=== PATIENT | female | born 1955 | race Caucasian/White ===

== ENCOUNTER 2016-02-26 13:07 | Inpatient (IN) | payer BC ==
[~2016-02-26] VITALS: Ht 157.5 cm; Wt 109.5 kg
[2016-02-26] MEDS ORDERED: IBUP-103 PO (13:40)
--- NOTE | 2016-02-26 13:42 | EMERGENCY ROOM VISIT NOTE ---
History Report prepared by Kenia: Eric Caceres Under the Supervision of: Dr. Ce Gomez M.D. First contact with patient: 13:16 Chief Complaint: URINARY SYMPTOMS Stated Complaint: DARK URINE History of Present Illness The patient is a 60 year old female who presents to the Emergency Room with complaints of persistent dark urine that started a week ago. The patient started noticing that in the evening her urine seemed darker than normal. Her urine became persistently dark all week. She has been trying to drink a lot of water, but it is not helping. The patient went to [facility] an hour ago and was referred here to get imaging done. She was told that she has a lot of bile and her eyes and skin are looking yellow. The patient denies any pain or vomiting. She has no history of these symptoms. Source of History: patient Onset: A week ago Position: other (global - dark urine) Timing: other (persistent) Associated Symptoms: No vomiting Note: Associated symptoms: Told by Urgent Care PA that patient's eyes and skin are looking yellow. Patient denies any pain. Review of Systems See HPI for pertinent positives & negatives. A total of 10 systems reviewed and were otherwise negative. Past Medical & Surgical Medical Problems: (1) Tibia fracture Surgical Problems: (1) History of hip surgery Family History FH: cancer FH: heart disease Social History Smoking Status: Never Smoker Smokeless Tobacco Use: No Alcohol Use: none Housing Status: lives alone Occupation Status: unemployed Current/Historical Medications Scheduled Ibuprofen Tab (Advil), 400 MG PO HS Allergies Coded Allergies: No Known Allergies (Unverified , 02/26/16) Physical Exam Vital Signs Date Time Temp Pulse Resp B/P Pulse Ox O2 Delivery O2 Flow Rate FiO2 02/26/16 15:39 93 18 166/89 97 Room Air 02/26/16 13:12 36.5 107 20 166/89 99 Room Air Physical Exam CONSTITUTIONAL: No distress. HEENT: No icterus, moist mucous membranes NECK: No meningismus, trachea is midline. CARDIOVASCULAR: Regular rate, normal perfusion RESPIRATORY: Unlabored breathing. Clear to auscultation. GASTROINTESTINAL: Non-tender GENITOURINARY: No flank tenderness MUSCULOSKELETAL: Full range of motion NEUROLOGIC: No acute gross focal deficits. PSYCHIATRIC: Normal affect SKIN: Normal for ethnicity. Medical Decision & Procedures ER Provider Diagnostic Interpretation: CT results as stated below per my review and radiologist interpretation. CT ABD/PELVIS IV CONTRAST ONLY CLINICAL HISTORY: The heart appearing. Abnormal LFTs. COMPARISON STUDY: None. TECHNIQUE: Following the IV administration of 119 mL of Optiray-320, CT scan of the abdomen and pelvis was performed from the lung bases to the proximal femurs. Images are reviewed in the axial, sagittal, and coronal planes. IV contrast was administered without complication. CT DOSE: 1145.94 mGycm FINDINGS: Lower chest: There is pulmonary emphysema. There are no pleural effusions. Liver: There is mild hepatic steatosis. No focal masses are visualized. Gallbladder: There is gallbladder wall edema. This a nonspecific finding but given history of abnormal LFTs it is possibly secondary to hepatocellular disease. Ultrasound follow-up might be considered. Spleen: The spleen measures 10.3 cm in length. No focal masses are visualized Pancreas: Masses are visualized. There is slight indistinctness of the fat surrounding the pancreatic tail. Correlation with biochemical markers is recommended to exclude a minimal pancreatitis Adrenal glands: Unremarkable. Kidneys: There is symmetric renal cortical enhancement. The kidneys are normal in size without hydronephrosis. Bowel: There are no transition zones indicate bowel obstruction. The appendix appears normal. There is clonic diverticulosis. There are no peridiverticular inflammatory changes. Peritoneum: There is no intraperitoneal free air or abdominal ascites. Vasculature: The abdominal aorta is normal in course and caliber. Adenopathy: None. Pelvic viscera: The bladder, and pelvic viscera are unremarkable. Skeletal structures: There are extensive bilateral hip deformities. These appear chronic. IMPRESSION: 1. No evidence of bowel obstruction. No evidence of free air 2. Hepatic steatosis 3. Gallbladder wall thickening 4. Minimal stranding of the fat adjacent the pancreatic tail. Correlation with appropriate biochemical markers is recommended to exclude a minimal pancreatitis 5. Normal appendix. 6. Diverticulosis. No evidence of acute peridiverticular inflammatory change Electronically signed by: Loc Osorio M.D. 02/26/2016 4:35 PM Dictated Date/Time: 02/26/2016 4:31 PM Laboratory Results 02/26/16 14:20 Red Blood Count 4.46, Mean Corpuscular Volume 90.4, Mean Corpuscular Hemoglobin 31.6, Mean Corpuscular Hemoglobin Concent 35.0, Mean Platelet Volume 10.2, Neutrophils (%) (Auto) 75.9, Lymphocytes (%) (Auto) 15.4, Monocytes (%) (Auto) 7.3, Eosinophils (%) (Auto) 0.8, Basophils (%) (Auto) 0.4, Neutrophils # (Auto) 4.04, Lymphocytes # (Auto) 0.82, Monocytes # (Auto) 0.39, Eosinophils # (Auto) 0.04, Basophils # (Auto) 0.02 02/26/16 14:20 Test 02/26/16 13:38 02/26/16 14:20 02/26/16 15:56 Urine Color ORANGE Urine Appearance SLIGHTLY CLOUDY (CLEAR) Urine pH (4.5-7.5) Urine Specific [place] 1.028 (1.000-1.030) Urine Protein POS (NEG) Urine Glucose (UA) (NEG) Urine Ketones (NEG) Urine Occult Blood (NEG) Urine Nitrite (NEG) Urine Bilirubin (NEG) Urine Urobilinogen (NEG) Urine Leukocyte Esterase (NEG) Urine RBC 0-4 /hpf (0-4) Urine WBC 1-5 /hpf (0-5) Urine Epithelial Cells >30 /lpf (0-5) Urine Calcium Oxalate Crystals PRESENT (NONE PRSENT) Urine Bacteria 1+ (NEG) White Blood Count 5.32 K/uL (4.8-10.8) Red Blood Count 4.46 M/uL (4.2-5.4) Hemoglobin 14.1 g/dL (12.0-16.0) Hematocrit 40.3 % (37-47) Mean Corpuscular Volume 90.4 fL (80-100) Mean Corpuscular Hemoglobin 31.6 pg (25-34) Mean Corpuscular Hemoglobin Concent 35.0 g/dl (32-36) Platelet Count 185 K/uL (130-400) Mean Platelet Volume 10.2 fL (7.4-10.4) Neutrophils (%) (Auto) 75.9 % Lymphocytes (%) (Auto) 15.4 % Monocytes (%) (Auto) 7.3 % Eosinophils (%) (Auto) 0.8 % Basophils (%) (Auto) 0.4 % Neutrophils # (Auto) 4.04 K/uL (1.4-6.5) Lymphocytes # (Auto) 0.82 K/uL (1.2-3.4) Monocytes # (Auto) 0.39 K/uL (0.11-0.59) Eosinophils # (Auto) 0.04 K/uL (0-0.5) Basophils # (Auto) 0.02 K/uL (0-0.2) RDW Standard Deviation 47.4 fL (36.4-46.3) RDW Coefficient of Variation 14.4 % (11.5-14.5) Immature Granulocyte % (Auto) 0.2 % Immature Granulocyte # (Auto) 0.01 K/uL (0.00-0.02) Prothrombin Time 9.6 SECONDS (9.0-12.0) Prothromb Time International Ratio 0.9 (0.9-1.1) Activated Partial Thromboplast Time 26.8 SECONDS (21.0-31.0) Partial Thromboplastin Ratio 1.0 Anion Gap 12.0 mmol/L (3-11) Est Creatinine Clear Calc Drug Dose 103.4 ml/min Estimated GFR () 109.7 Estimated GFR (Non- 94.6 BUN/Creatinine Ratio 17.2 (10-20) Calcium Level 9.2 mg/dl (8.5-10.1) Magnesium Level 2.1 mg/dl (1.8-2.4) Total Bilirubin 7.4 mg/dl (0.2-1) Direct Bilirubin 5.3 mg/dl (0-0.2) Aspartate Amino Transf (AST/SGOT) 203 U/L (15-37) Alanine Aminotransferase (ALT/SGPT) 380 U/L (12-78) Alkaline Phosphatase 272 U/L (45-117) Total Protein 7.9 gm/dl (6.4-8.2) Albumin 3.6 gm/dl (3.4-5.0) Lipase 194 U/L (73-393) Labs reviewed by ED physician. Medications Administered Medications (Trade) Dose Ordered Sig/Pia Route Start Time Stop Time Status Last Admin Dose Admin Sodium Chloride (Nss 1000ml) 1,000 ml @ 0 mls/hr Q0M STAT IV 02/26/16 15:54 02/26/16 15:57 DC 02/26/16 15:54 0 MLS/HR ED Course 1331: Past medical records reviewed. The patient was evaluated in room B9. A complete history and physical examination was performed. 1554: Ordered NSS 1000 ml @ 0 mls/hr Wide Open IV. 1646: I reevaluated the patient and she is resting comfortably. The patient verbally expressed understanding and agreement of the treatment plan. The patient will be evaluated for further treatment. 1726: I discussed the patient with Dr. Enrique SANDERS hospitalist - he will evaluate the patient for further treatment. Medical Decision Differential diagnoses include: liver disease, dehydration. 60 y/o in her otherwise normal state of health presented to urgent care today for "dark urine" over the last week w/o other systemic complaints. (+) moderate bili noted and patient was directed to ED for eval. Elevated bili and LFTs noted and CT scan demonstrated gallbladder wall thickening although no tenderness was noted on exam. Patient advised of results and remains comfortable on re-exam. Case d/w admitting team at 5:30pm. Consults Time Called: 1700 Consulting Physician: Dr. Enrique rubio Returned Call: 1726 I discussed the patient with Dr. Enrique rubio - he will evaluate the patient for further treatment. Impression Primary Impression: Jaundice Scribe Attestation The scribe's documentation has been prepared under my direction and personally reviewed by me in its entirety. I confirm that the note above accurately reflects all work, treatment, procedures, and medical decision making performed by me. Departure Information Dispostion Being Evaluated By Hospitalist Referrals No Doctor, Assigned (PCP) Patient Instructions A Signature Page, [facility]
[2016-02-26 14:04] LABS: MANUAL MICROSCOPIC REQUIRED? YES; REVIEW REQ? NO; SULFASALICYLIC ACID POS (NEG); URINE APPEARANCE SLIGHTLY CLOUDY (CLEAR); URINE COLOR ORANGE
[2016-02-26 14:05] LABS: URINE SPECIFIC GRAVITY 1.028 (1.000-1.030)
[2016-02-26 14:07] LABS: URINE BACTERIA 1+ (NEG); URINE RBC 0-4 /hpf (0-4); ZZUR CULT IF INDIC CLEAN CATCH YES
[2016-02-26 14:42] LABS: BASO % 0.4 %; BASO ABS # 0.02 K/uL (0-0.2); COMPLETE YES; EOS % 0.8 %; HEMATOCRIT 40.3 % (37-47); IG% 0.2 %; LYMPH % 15.4 %; LYMPH ABS # 0.82 K/uL (1.2-3.4); MEAN CELL VOLUME 90.4 fL (80-100); MEAN CORPUSCULAR HEMOGLOBIN 31.6 pg (25-34); MEAN PLATELET VOLUME 10.2 fL (7.4-10.4); MONO % 7.3 %; NEUT % 75.9 %; PLATELET COUNT 185 K/uL (130-400); RED BLOOD COUNT 4.46 M/uL (4.2-5.4); WHITE BLOOD COUNT 5.32 K/uL (4.8-10.8)
[2016-02-26 15:01] LABS: INR 0.9 (0.9-1.1); PROTHROMBIN TIME (PATIENT) 9.6 SECONDS (9.0-12.0)
[2016-02-26 15:07] LABS: BUN/CREATININE RATIO 17.2 (10-20); CALCIUM 9.2 mg/dl (8.5-10.1); CREATININE 0.69 mg/dl (0.60-1.20); POTASSIUM 3.1 mmol/L (3.5-5.1)
[2016-02-26] MEDS ORDERED: SODIUM CHLORIDE 0.9% 1000ML 1,000 ML IV STA (15:54)
[2016-02-26] MEDS ORDERED: OPTIRAY 320 IV PRN (16:00)
--- NOTE | 2016-02-26 16:37 | DIAGNOSTIC IMAGING REPORT ---
CT ABD/PELVIS IV CONTRAST ONLY CLINICAL HISTORY: The heart appearing. Abnormal LFTs. COMPARISON STUDY: None. TECHNIQUE: Following the IV administration of 119 mL of Optiray-320, CT scan of the abdomen and pelvis was performed from the lung bases to the proximal femurs. Images are reviewed in the axial, sagittal, and coronal planes. IV contrast was administered without complication. CT DOSE: 1145.94 mGycm FINDINGS: Lower chest: There is pulmonary emphysema. There are no pleural effusions. Liver: There is mild hepatic steatosis. No focal masses are visualized. Gallbladder: There is gallbladder wall edema. This a nonspecific finding but given history of abnormal LFTs it is possibly secondary to hepatocellular disease. Ultrasound follow-up might be considered. Spleen: The spleen measures 10.3 cm in length. No focal masses are visualized Pancreas: Masses are visualized. There is slight indistinctness of the fat surrounding the pancreatic tail. Correlation with biochemical markers is recommended to exclude a minimal pancreatitis Adrenal glands: Unremarkable. Kidneys: There is symmetric renal cortical enhancement. The kidneys are normal in size without hydronephrosis. Bowel: There are no transition zones indicate bowel obstruction. The appendix appears normal. There is clonic diverticulosis. There are no peridiverticular inflammatory changes. Peritoneum: There is no intraperitoneal free air or abdominal ascites. Vasculature: The abdominal aorta is normal in course and caliber. Adenopathy: None. Pelvic viscera: The bladder, and pelvic viscera are unremarkable. Skeletal structures: There are extensive bilateral hip deformities. These appear chronic. IMPRESSION: 1. No evidence of bowel obstruction. No evidence of free air 2. Hepatic steatosis 3. Gallbladder wall thickening 4. Minimal stranding of the fat adjacent the pancreatic tail. Correlation with appropriate biochemical markers is recommended to exclude a minimal pancreatitis 5. Normal appendix. 6. Diverticulosis. No evidence of acute peridiverticular inflammatory change Electronically signed by: Loc Osorio M.D. 02/26/2016 4:35 PM Dictated Date/Time: 02/26/2016 4:31 PM
--- NOTE | 2016-02-26 18:04 | DIAGNOSTIC IMAGING REPORT ---
ABDOMINAL ULTRASOUND, RIGHT UPPER QUADRANT HISTORY: Elevated bilirubin.. COMPARISON: CT of the abdomen and pelvis February 26, 2016. FINDINGS: Liver morphology is normal. No hepatic lesions are identified. There is no biliary ductal dilatation. The common bile measures 5 mm in caliber. The pancreatic body is normal. The head and tail are obscured. There are numerous gallstones within the gallbladder. Mild gallbladder wall thickening is noted. The wall measures 4 mm in thickness. There was no pericholecystic fluid. No sonographic Torres sign was elicited. There was no right hydronephrosis. IMPRESSION: 1. Cholelithiasis and mild gallbladder wall thickening. No sonographic Torres's sign or pericholecystic fluid. 2. No biliary ductal dilatation. 3. Partially obscured pancreas. Electronically signed by: Efrain Lara M.D. 02/26/2016 6:02 PM Dictated Date/Time: 02/26/2016 6:00 PM
[2016-02-26] MEDS ORDERED: PIPERACILL/TAZOBAC IV 3.375 GM in DEXTROSE 5% 100ML 100 ML IV ONE (18:23)
[2016-02-26] MEDS ORDERED: POTASSIUM CITRATE 10 MEQ TAB PO ONE (18:30)
[2016-02-26] MEDS ORDERED: ONDANSETRON INJ 2 MG/ML 2 ML VIAL IV PRN (18:30)
--- NOTE | 2016-02-26 18:43 | History and Physical ---
History & Physical Date & Time of Service: Feb 26, 2016 at 17:19 Chief Complaint: Dark Urine Primary Care Physician: No Doctor, Assigned History of Present Illness Source: patient This is a 60 yo f that is presenting to us with persistently dark urine requiring further evaluation. She states that she started to noticed a tea coloured urine around AMY. the first time she noticed it she recalled a mild diffuse abdominal ache which self resolved. Since that time she has had an ongoing dark urine which even with adequate hydration would remain dark. She then noticed that she started to get jaundiced in colour and decided to go to [facility]. They evaluated the patient because of the bili they noticed in the UA they recommended further evaluation in the ED. Aside from symptoms noted above she noticed that with very rich meals she would have episodes of N&V with very mild abdominal pain. This started on . Since this started she tried to eat bland meals and thought that when she had rich meals it was "because her body was not used to it". She notes weight loss but attributes it to her new regimen. She denies any change to the colour of her stool but feels it may be "looser" than normal. She has not had a PCP since moving here 2 years prior and denies any h/o gallstones. Past Medical/Surgical History Medical Problems: (1) Tibia fracture Status: Resolved Surgical Problems: (1) History of hip surgery Status: Resolved Family History FH: cancer FH: heart disease Social History Smoking Status: Never Smoker Smokeless Tobacco Use: No Alcohol Use: very rarely Drug Use: none Marital Status: Housing status: lives alone (family nearby) Occupational Status: unemployed Allergies Coded Allergies: No Known Allergies (Unverified , 02/26/16) Home Medications Scheduled Ibuprofen Tab (Advil), 400 MG PO HS Review of Systems Constitutional: No fever Eyes: No worsening of vision ENT: No hearing loss Respiratory: No cough, No dyspnea at rest, No dyspnea on exertion, No shortness of breath, No sputum, No wheezing Cardiovascular: No chest pain Abdomen: No constipation, No diarrhea, No nausea, No pain, No vomiting Musculoskeletal: No joint pain, No muscle pain Genitourinary - Female: + problem reported (darkened urine), No dysuria Neurologic: No numbness/tingling, No weakness Endocrine: No fatigue Integumentary: + color change (jaundice) Physical Exam Vital Signs Date Time Temp Pulse Resp B/P Pulse Ox O2 Delivery O2 Flow Rate FiO2 02/26/16 15:39 93 18 166/89 97 Room Air 02/26/16 13:12 36.5 107 20 166/89 99 Room Air General Appearance: WD/WN, no apparent distress Head: normocephalic, atraumatic Eyes: normal inspection ENT: normal ENT inspection Neck: supple Respiratory/Chest: lungs clear, normal breath sounds, no respiratory distress, no accessory muscle use Cardiovascular: regular rate, rhythm, + systolic murmur (04/25) Abdomen/GI: normal bowel sounds, non tender, soft, no organomegaly, + pertinent finding (negative torres, no rebound, no CVA tenderness, neg rovsig) Back: normal inspection, no CVA tenderness Extremities/Musculoskelatal: normal inspection, no pedal edema Neurologic/Psych: alert, normal mood/affect, oriented x 3 Skin: warm/dry, no rash, + jaundice Lymphatic: no adenopathy Diagnostics Laboratory Results Results Past 24 Hours Test 02/26/16 13:38 02/26/16 14:20 02/26/16 15:56 Range/Units Urine Color ORANGE Urine Appearance SLIGHTLY CLOUDY CLEAR Urine pH 4.5-7.5 Urine Specific [place] 1.028 1.000-1.030 Urine Protein POS NEG Urine Glucose (UA) NEG Urine Ketones NEG Urine Occult Blood NEG Urine Nitrite NEG Urine Bilirubin NEG Urine Urobilinogen NEG Urine Leukocyte Esterase NEG Urine RBC 0-4 0-4 /hpf Urine WBC 1-5 0-5 /hpf Urine Epithelial Cells >30 0-5 /lpf Urine Calcium Oxalate Crystals PRESENT NONE PRSENT Urine Bacteria 1+ NEG White Blood Count 5.32 4.8-10.8 K/uL Red Blood Count 4.46 4.2-5.4 M/uL Hemoglobin 14.1 12.0-16.0 g/dL Hematocrit 40.3 37-47 % Mean Corpuscular Volume 90.4 80-100 fL Mean Corpuscular Hemoglobin 31.6 25-34 pg Mean Corpuscular Hemoglobin Concent 35.0 32-36 g/dl Platelet Count 185 130-400 K/uL Mean Platelet Volume 10.2 7.4-10.4 fL Neutrophils (%) (Auto) 75.9 % Lymphocytes (%) (Auto) 15.4 % Monocytes (%) (Auto) 7.3 % Eosinophils (%) (Auto) 0.8 % Basophils (%) (Auto) 0.4 % Neutrophils # (Auto) 4.04 1.4-6.5 K/uL Lymphocytes # (Auto) 0.82 1.2-3.4 K/uL Monocytes # (Auto) 0.39 0.11-0.59 K/uL Eosinophils # (Auto) 0.04 0-0.5 K/uL Basophils # (Auto) 0.02 0-0.2 K/uL RDW Standard Deviation 47.4 36.4-46.3 fL RDW Coefficient of Variation 14.4 11.5-14.5 % Immature Granulocyte % (Auto) 0.2 % Immature Granulocyte # (Auto) 0.01 0.00-0.02 K/uL Prothrombin Time 9.6 9.0-12.0 SECONDS Prothromb Time International Ratio 0.9 0.9-1.1 Activated Partial Thromboplast Time 26.8 21.0-31.0 SECONDS Partial Thromboplastin Ratio 1.0 Sodium Level 139 136-145 mmol/L Potassium Level 3.1 3.5-5.1 mmol/L Chloride Level 102 98-107 mmol/L Carbon Dioxide Level 25 21-32 mmol/L Anion Gap 12.0 3-11 mmol/L Blood Urea Nitrogen 12 7-18 mg/dl Creatinine 0.69 0.60-1.20 mg/dl Est Creatinine Clear Calc Drug Dose 103.4 ml/min Estimated GFR () 109.7 Estimated GFR (Non- 94.6 BUN/Creatinine Ratio 17.2 10-20 Random Glucose 113 70-99 mg/dl Calcium Level 9.2 8.5-10.1 mg/dl Magnesium Level 2.1 1.8-2.4 mg/dl Total Bilirubin 7.4 0.2-1 mg/dl Direct Bilirubin 5.3 0-0.2 mg/dl Aspartate Amino Transf (AST/SGOT) 203 15-37 U/L Alanine Aminotransferase (ALT/SGPT) 380 12-78 U/L Alkaline Phosphatase 272 45-117 U/L Total Protein 7.9 6.4-8.2 gm/dl Albumin 3.6 3.4-5.0 gm/dl Lipase 194 73-393 U/L Microbiology Results 02/26/16 Urine Culture, Received Pending Diagnostic Radiology ABDOMINAL ULTRASOUND, RIGHT UPPER QUADRANT HISTORY: Elevated bilirubin.. COMPARISON: CT of the abdomen and pelvis February 26, 2016. FINDINGS: Liver morphology is normal. No hepatic lesions are identified. There is no biliary ductal dilatation. The common bile measures 5 mm in caliber. The pancreatic body is normal. The head and tail are obscured. There are numerous gallstones within the gallbladder. Mild gallbladder wall thickening is noted. The wall measures 4 mm in thickness. There was no pericholecystic fluid. No sonographic Torres sign was elicited. There was no right hydronephrosis. IMPRESSION: 1. Cholelithiasis and mild gallbladder wall thickening. No sonographic Torres's sign or pericholecystic fluid. 2. No biliary ductal dilatation. 3. Partially obscured pancreas. CT ABD/PELVIS IV CONTRAST ONLY CLINICAL HISTORY: The heart appearing. Abnormal LFTs. COMPARISON STUDY: None. TECHNIQUE: Following the IV administration of 119 mL of Optiray-320, CT scan of the abdomen and pelvis was performed from the lung bases to the proximal femurs. Images are reviewed in the axial, sagittal, and coronal planes. IV contrast was administered without complication. CT DOSE: 1145.94 mGycm FINDINGS: Lower chest: There is pulmonary emphysema. There are no pleural effusions. Liver: There is mild hepatic steatosis. No focal masses are visualized. Gallbladder: There is gallbladder wall edema. This a nonspecific finding but given history of abnormal LFTs it is possibly secondary to hepatocellular disease. Ultrasound follow-up might be considered. Spleen: The spleen measures 10.3 cm in length. No focal masses are visualized Pancreas: Masses are visualized. There is slight indistinctness of the fat surrounding the pancreatic tail. Correlation with biochemical markers is recommended to exclude a minimal pancreatitis Adrenal glands: Unremarkable. Kidneys: There is symmetric renal cortical enhancement. The kidneys are normal in size without hydronephrosis. Bowel: There are no transition zones indicate bowel obstruction. The appendix appears normal. There is clonic diverticulosis. There are no peridiverticular inflammatory changes. Peritoneum: There is no intraperitoneal free air or abdominal ascites. Vasculature: The abdominal aorta is normal in course and caliber. Adenopathy: None. Pelvic viscera: The bladder, and pelvic viscera are unremarkable. Skeletal structures: There are extensive bilateral hip deformities. These appear chronic. IMPRESSION: 1. No evidence of bowel obstruction. No evidence of free air 2. Hepatic steatosis 3. Gallbladder wall thickening 4. Minimal stranding of the fat adjacent the pancreatic tail. Correlation with appropriate biochemical markers is recommended to exclude a minimal pancreatitis 5. Normal appendix. 6. Diverticulosis. No evidence of acute peridiverticular inflammatory change Impression Assessment and Plan This is a 60 yo f that is suffering from jaundice, elevated direct bili (5.3) and cholelithiasis. There is concern for choledocholithiasis so an MRCP shall be ordered to evaluate this as well as get a better visual of the liver. Abnormal liver function tests possibly secondary to obstruction such as choledocholithiasis - Med Surg admission - CMP daily - MRCP pending - NPO for potential intervention - 150cc/h NSS - zosyn for empiric therapy Hypokalemia - Supplement in ED plus 10 meq bid daily - recheck in am Gi prophylaxis - Protonix bid 40 mg DVT Prophylaxis SCD, reevaluate after potential intervention FULL CODE Level of Care Med/Surg Resuscitation Status FULL RESUSCITATION VTE Prophylaxis VTE Risk Assessment Done? Y/N: Yes Risk Level: Low Given or contraindicated: SCD's Social Service Consult None Apply Note Total Time: Critical Care 30 - 74 minutes Assessment and Plan ATTENDING ADDENDUM: I HAVE PHYSICALLY SEEN AND EXAMINED THIS PATIENT, DIRECTED HER CARE, AND AGREE WITH THE H&P NOTED ABOVE. ABNORMAL LFT'S WITH POSSIBLE GALLBLADDER DISEASE NOTED ON CT OF ABDOMEN/PELVIS AND ULTRASOUND OF ABDOMEN. MRI OF LIVER TO FURTHER DIFFERENTIATE GALLBLADDER VS OTHER SOURCE SUCH CA. MAY NEED A FUNCTIONAL GALLBLADDER ASSESSMENT SUCH HIDA WITH GB EF.
[2016-02-26 20:15] VITALS: BP 158/89; PULSE 92; TEMP 37.2; O2SAT 98
[2016-02-26 20:27] VITALS: BP 158/89; PULSE 92; TEMP 37.2; O2SAT 98; Ht 157.5 cm; Wt 109.5 kg
--- NOTE | 2016-02-26 20:52 | DIAGNOSTIC IMAGING REPORT ---
MRCP CLINICAL HISTORY: Jaundice and cholelithiasis. COMPARISON STUDY: CT of the abdomen and pelvis and right upper ultrasound February 26, 2016. TECHNIQUE: Utilizing a 1.5 Kary magnet and dedicated coil, multiplanar, multi echo imaging of the upper abdomen was performed utilizing heavily T2 weighted sequences. No intravenous contrast was administered. FINDINGS: There are multiple gallstones within the gallbladder. Mild gallbladder wall thickening is noted with no pericholecystic fluid. Borderline splenomegaly is noted. Liver morphology is normal. No intra or extrahepatic biliary ductal dilatation is present. There is apparent intrahepatic biliary ductal irregularity with apparent multifocal strictures. This could be artifactual given respiratory motion artifact on the 3-D MRCP sequence. There is also apparent irregular narrowing of the proximal common bile duct without upstream dilatation. The course and caliber of the main pancreatic duct is normal. There is no peripancreatic infiltration or fluid. No common bile duct calculi are identified on this exam. Unenhanced images of the kidneys and adrenal glands are unremarkable. There is no upper abdominal adenopathy or ascites. IMPRESSION: 1. No intra or extrahepatic biliary ductal dilatation. No common bile duct calculi identified. 2. Apparent irregularity of the intrahepatic bile ducts with possible biliary strictures involving the intrahepatic bile ducts and the proximal common bile duct. However, there is no associated biliary ductal dilatation. These findings could be artifactual given respiratory motion on this exam. However, an etiology such as primary sclerosing cholangitis could have this imaging appearance. A repeat MRCP could be obtained as indicated. 3. Cholelithiasis with mild gallbladder wall thickening. Electronically signed by: Efrain Lara M.D. 02/26/2016 8:50 PM Dictated Date/Time: 02/26/2016 8:21 PM
[2016-02-26] MEDS ORDERED: PIPERACILL/TAZOBAC CONSULT ACTIVE PRN (21:00)
[2016-02-26] MEDS ORDERED: PIPERACILL/TAZOBAC IV 3.375 GM in DEXTROSE 5% 100ML IV ONE (21:00)
[2016-02-26] MEDS ORDERED: INFLUENZA ADMINISTRATION CHARGE ONE (21:45)
[2016-02-26] MEDS ORDERED: INFLUENZA VIRUS QUAD VACCINE 0.5 ML SYR IM. ONE (21:45)
[2016-02-26] MEDS: SODIUM CHLORIDE 0.9% 1000ML 1,000 ML IV SCH (22:05)
[2016-02-26 23:45] VITALS: BP 135/78; PULSE 73; TEMP 36.8; O2SAT 94
[2016-02-27] MEDS ORDERED: PIPERACILL/TAZOBAC IV 3.375 GM in DEXTROSE 5% 100ML 100 ML IV SCH ×2
[2016-02-27] MEDS: SODIUM CHLORIDE 0.9% 1000ML 1,000 ML IV SCH ×2 (01:51→08:28)
[2016-02-27] MEDS: PIPERACILL/TAZOBAC IV 3.375 GM in DEXTROSE 5% 100ML IV SCH ×3 (03:47→18:28)
[2016-02-27 05:52] LABS: HEMATOCRIT 35.3 % (37-47); MEAN CELL VOLUME 89.8 fL (80-100); MEAN CORPUSCULAR HGB CONC 34.6 g/dl (32-36); PLATELET COUNT 158 K/uL (130-400); RED BLOOD COUNT 3.93 M/uL (4.2-5.4); WHITE BLOOD COUNT 4.15 K/uL (4.8-10.8)
[2016-02-27 06:32] LABS: ALB/GLOB RATIO 0.9 (0.9-2); BUN/CREATININE RATIO 13.8 (10-20); CALCIUM 8.4 mg/dl (8.5-10.1); CREATININE 0.56 mg/dl (0.60-1.20); POTASSIUM 3.5 mmol/L (3.5-5.1)
[2016-02-27 07:05] VITALS: BP 153/79; PULSE 75; TEMP 36.8; O2SAT 95
[2016-02-27] MEDS: POTASSIUM CITRATE 10 MEQ TAB PO SCH ×2 (08:28→20:52)
--- NOTE | 2016-02-27 10:49 | Progress Note ---
Subjective Date of Service: Feb 27, 2016. Subjective Pt evaluation today including: conversation w/ patient, conversation w/ family , physical exam, chart review, lab review, review of studies, conversation w/ eligibility consultant, review of inpatient medication list Feeling good no complaining, Problem List Medical Problems: (1) Jaundice Status: Acute Review of Systems Constitutional: No chills, No fatigue, No fever, No problem reported, No sweats , No weakness, No weight loss Eyes: No diplopia, No discharge, No eye pain, No redness, No worsening of vision ENT: No dental problems, No hearing loss, No nasal symptoms, No sore throat, No tinnitus, No trouble swallowing, No unusual epistaxis Respiratory: No cough, No dyspnea at rest, No dyspnea on exertion, No hemoptysis, No shortness of breath, No sputum, No wheezing Cardiac: No PND, No chest pain, No claudication, No edema, No orthopnea, No palpitations Abdomen: No constipation, No diarrhea, No nausea, No pain, No vomiting Musculoskeletal: No calf pain, No joint pain, No muscle pain, No swelling Female : No abnormal vaginal bleeding, No dysuria, No hematuria, No incontinence, No urinary frequency, No vaginal discharge Neurologic: No balance problems, No memory loss, No numbness/tingling, No paralysis, No vertigo, No weakness Psychiatric: No anhedonism, No anxiety, No depression symptoms, No insomnia, No substance abuse Heme: No abnormal bleeding/bruising, No clotting problems, No night sweats, No swollen lymph nodes Endo: No excessive thirst, No excessive urination, No fatigue Skin: No bleeding, No color change, No itch, No new/changing skin lesions, No rash Objective Vital Signs Date Time Temp Pulse Resp B/P Pulse Ox O2 Delivery O2 Flow Rate FiO2 02/27/16 07:56 Room Air 02/27/16 07:05 36.8 75 18 153/79 95 Room Air 02/26/16 23:50 Room Air 02/26/16 23:45 36.8 73 16 135/78 94 Room Air 02/26/16 20:27 37.2 92 16 158/89 98 Room Air 02/26/16 20:15 37.2 92 16 158/89 98 Room Air 02/26/16 18:14 90 18 148/89 98 Room Air 02/26/16 15:39 93 18 166/89 97 Room Air 02/26/16 13:12 36.5 107 20 166/89 99 Room Air Physical Exam General Appearance: WD/WN, no apparent distress, + pertinent finding (present mild jaundice) Eyes: normal inspection, PERRL, EOMI, sclerae normal ENT: normal ENT inspection, hearing grossly normal, pharynx normal Neck: supple, no adenopathy, thyroid normal, no JVD, no carotid bruits, trachea midline Respiratory/Chest: chest non-tender, lungs clear, normal breath sounds, no respiratory distress, no accessory muscle use Cardiovascular: regular rate, rhythm, no edema, no gallop, no JVD, no murmur Abdomen: normal bowel sounds, non tender, soft, no organomegaly, no pulsatile mass Extremities: normal range of motion, non-tender, normal inspection, no pedal edema, no calf tenderness, normal capillary refill, pelvis stable 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, no motor/sensory deficits, alert, normal mood/affect, oriented x 3 Skin: normal color, warm/dry, no rash Lymphatic: no adenopathy Laboratory Results Last 24 Hours Test 02/26/16 13:38 02/26/16 14:20 02/26/16 18:03 02/27/16 05:25 Urine Color ORANGE Urine Appearance SLIGHTLY CLOUDY Urine pH Urine Specific [place] 1.028 Urine Protein POS Urine Glucose (UA) Urine Ketones Urine Occult Blood Urine Nitrite Urine Bilirubin Urine Urobilinogen Urine Leukocyte Esterase Urine RBC 0-4 /hpf Urine WBC 1-5 /hpf Urine Epithelial Cells >30 /lpf Urine Calcium Oxalate Crystals PRESENT Urine Bacteria 1+ White Blood Count 5.32 K/uL 4.15 K/uL Red Blood Count 4.46 M/uL 3.93 M/uL Hemoglobin 14.1 g/dL 12.2 g/dL Hematocrit 40.3 % 35.3 % Mean Corpuscular Volume 90.4 fL 89.8 fL Mean Corpuscular Hemoglobin 31.6 pg 31.0 pg Mean Corpuscular Hemoglobin Concent 35.0 g/dl 34.6 g/dl Platelet Count 185 K/uL 158 K/uL Mean Platelet Volume 10.2 fL 10.0 fL Neutrophils (%) (Auto) 75.9 % Lymphocytes (%) (Auto) 15.4 % Monocytes (%) (Auto) 7.3 % Eosinophils (%) (Auto) 0.8 % Basophils (%) (Auto) 0.4 % Neutrophils # (Auto) 4.04 K/uL Lymphocytes # (Auto) 0.82 K/uL Monocytes # (Auto) 0.39 K/uL Eosinophils # (Auto) 0.04 K/uL Basophils # (Auto) 0.02 K/uL RDW Standard Deviation 47.4 fL 47.4 fL RDW Coefficient of Variation 14.4 % 14.4 % Immature Granulocyte % (Auto) 0.2 % Immature Granulocyte # (Auto) 0.01 K/uL Prothrombin Time 9.6 SECONDS Prothromb Time International Ratio 0.9 Activated Partial Thromboplast Time 26.8 SECONDS Partial Thromboplastin Ratio 1.0 Sodium Level 139 mmol/L 143 mmol/L Potassium Level 3.1 mmol/L 3.5 mmol/L Chloride Level 102 mmol/L 108 mmol/L Carbon Dioxide Level 25 mmol/L 28 mmol/L Anion Gap 12.0 mmol/L 7.0 mmol/L Blood Urea Nitrogen 12 mg/dl 8 mg/dl Creatinine 0.69 mg/dl 0.56 mg/dl Est Creatinine Clear Calc Drug Dose 103.4 ml/min 127.3 ml/min Estimated GFR () 109.7 117.5 Estimated GFR (Non- 94.6 101.3 BUN/Creatinine Ratio 17.2 13.8 Random Glucose 113 mg/dl 83 mg/dl Calcium Level 9.2 mg/dl 8.4 mg/dl Magnesium Level 2.1 mg/dl Total Bilirubin 7.4 mg/dl 5.8 mg/dl Direct Bilirubin 5.3 mg/dl Aspartate Amino Transf (AST/SGOT) 203 U/L 222 U/L Alanine Aminotransferase (ALT/SGPT) 380 U/L 367 U/L Alkaline Phosphatase 272 U/L 228 U/L Total Protein 7.9 gm/dl 6.3 gm/dl Albumin 3.6 gm/dl 2.9 gm/dl Lipase 194 U/L Hepatitis B Surface Antigen NEG Hepatitis C Antibody NEG Globulin 3.4 gm/dl Albumin/Globulin Ratio 0.9 Test 02/27/16 08:15 02/27/16 08:49 Monoscreen NEG HIV (1&2) Ab and P24 Ag, 4th Gener NEG Assessment and Plan 60 yo f admitted on 02/26/2016 because of suffering from jaundice, associated with elevated direct bili (5.3) and cholelithiasis. There is concern for choledocholithiasis so an MRCP shall be ordered to evaluate this as well as get a better visual of the liver. Abnormal liver function tests with jaundice The differential diagnosis the is hepatic jaundice, or biliary track disease caused jaundice It is not possible of hemolytic because patient associated with abnormal liver function test Alkaline phosphatase moderated elevated MRCP results see below possibly secondary to obstruction such as choledocholithiasis? Hepatitis panel, mono, EB virus, CME, HIV were ordered Patient denied sick contact or recent traveling GI consult requested, surgeon consult if needed MRCP on 02/26/2016, the report is in below: . No intra or extrahepatic biliary ductal dilatation. No common bile duct calculi identified. 2. Apparent irregularity of the intrahepatic bile ducts with possible biliary strictures involving the intrahepatic bile ducts and the proximal common bile duct. However, there is no associated biliary ductal dilatation. These findings could be artifactual given respiratory motion on this exam. However, an etiology such as primary sclerosing cholangitis could have this imaging appearance. A repeat MRCP could be obtained as indicated. 3. Cholelithiasis with mild gallbladder wall thickening. Hypokalemia - Supplement in ED plus 10 meq bid daily - recheck in am Discussed with patient about a care plan, answer all questions Gi prophylaxis - Protonix bid 40 mg DVT Prophylaxis SCD, reevaluate after potential intervention FULL CODE Continued [facility] stay due to: multiple IV medications needed Discharge planning: home
[2016-02-27 11:56] LABS: INFLUENZA A PCR Neg for Influ A (NEG); INFLUENZA B PCR Neg for Influ B (NEG)
--- NOTE | 2016-02-27 15:09 | GASTROINTESTINAL CONSULTATION ---
DATE OF CONSULTATION: 02/27/2016 DATE OF CONSULTATION: 02/27/2016. ATTENDING PHYSICIAN: Dr. Munoz. CONSULTING PHYSICIAN: Dr. Omer. REASON FOR CONSULTATION: Abnormal liver function. HISTORY OF PRESENT ILLNESS: Reena Dean presented to the Department of Emergency Medicine yesterday after noticing dark urine and some jaundice. She stated that over the last week, she had noticed a darkening of her urine and did develop some yellow discoloration of her skin and eyes as well. Upon arrival to the Department of Emergency Medicine, she was noted to have a total bilirubin of 7.4 with a direct bilirubin of 5.3, AST of 203, ALT of 380 and alkaline phosphatase at 272. She did undergo an abdominal and pelvis CT scan yesterday which showed no evidence of bowel obstruction, though did show hepatic steatosis, gallbladder wall thickening and minimal stranding in the fat adjacent to the pancreatic tail as well as normal appendix and diverticulosis. Due to her jaundice she did undergo a right upper quadrant ultrasound which showed cholelithiasis and mild gallbladder wall thickening and no sonographic Torres sign or pericholecystic fluid, no biliary ductal dilatation, and partially obscured pancreas. An MRCP was ordered yesterday evening and showed no intra- or extrahepatic biliary ductal dilatation and no common bile duct calculi were noted, however there was an apparent irregularity of the intrahepatic bile ducts with possible biliary strictures involving the intrahepatic bile ducts and the proximal common bile duct. There was no associated biliary ductal dilation and PSC was considered a possibility. Cholelithiasis and mild gallbladder wall thickening were again seen on the MRCP. The patient herself has denied any abdominal pain throughout her course of illness. Her white blood cell count has been normal as well. She denies any fevers, chills, nausea, vomiting, hematemesis, melena, hematochezia. She has never undergone an upper endoscopy or colonoscopy and has never undergone any abdominal surgeries in the past. PAST MEDICAL HISTORY: Positive for a tibia fracture. PAST SURGICAL HISTORY: She has a history of pediatric hip surgery at age 1. ALLERGIES: None. MEDICATIONS: At present include Zosyn 3.375 grams IV q. 8 hours, Zofran 4 mg IV q. 6 p.r.n. nausea. SOCIAL HISTORY: She denies any tobacco, alcohol or illicit drug use. FAMILY HISTORY: Negative for GI malignancy or inflammatory bowel disease. REVIEW OF SYSTEMS: Negative x12 system review other than pertinent positives listed in the HPI. PHYSICAL EXAMINATION: VITAL SIGNS: Temp 36.8, pulse 75, respirations 18, blood pressure 153/79, pulse ox 95% on room air. GENERAL EXAMINATION: She is awake, cooperative, in no acute distress. Noted jaundice. HEAD: Normocephalic, atraumatic. EYES: Sclerae are icteric. NECK: Soft, supple. No JVD or lymphadenopathy. CHEST: Clear to auscultation bilaterally. CARDIOVASCULAR SYSTEM: Regular rate and rhythm. ABDOMEN: Soft, nontender, nondistended. Positive bowel sounds. There is no hepatosplenomegaly or stigmata of chronic liver disease. EXTREMITIES: No clubbing, cyanosis, or edema. SKIN: Soft jaundice noted. LABORATORY STUDIES: Reviewed in the HPI as well as radiographic studies. IMPRESSION: This is a 60-year-old female with new onset painless jaundice and abnormal imaging studies showing intrahepatic stricturing as well as possible common bile duct stricture with noted cholelithiasis. PLAN: I would recommend that she continue to receive antibiotic coverage secondary to possible biliary obstruction. She will require endoscopic ultrasound in the near future to delineate choledocholithiasis versus common bile duct stricturing versus intrahepatic stricturing which could be associated with PSC. I will defer to Drs. Cormier and Wallace in this regard. I will follow the patient's clinical course and make further recommendations as needed, consideration could be given to consulting surgery, though I do not believe that the patient has acute cholecystitis at this time. Once again, thanks for allowing me to participate in the care of this patient. If you have any further questions, please do not hesitate in contacting me. DONTA
[2016-02-27 16:05] VITALS: BP 151/76; PULSE 63; TEMP 37.2; O2SAT 95
[2016-02-27 23:08] VITALS: BP 144/72; PULSE 60; TEMP 36.6; O2SAT 95
[2016-02-28] MEDS: PIPERACILL/TAZOBAC IV 3.375 GM in DEXTROSE 5% 100ML IV SCH ×2 (03:27→12:10)
[2016-02-28 05:45] LABS: HEMATOCRIT 35.3 % (37-47); MEAN CELL VOLUME 90.5 fL (80-100); MEAN CORPUSCULAR HEMOGLOBIN 30.5 pg (25-34); MEAN CORPUSCULAR HGB CONC 33.7 g/dl (32-36); MEAN PLATELET VOLUME 10.2 fL (7.4-10.4); PLATELET COUNT 168 K/uL (130-400); WHITE BLOOD COUNT 3.46 K/uL (4.8-10.8)
[2016-02-28 06:09] LABS: BUN/CREATININE RATIO 9.8 (10-20); CALCIUM 8.3 mg/dl (8.5-10.1); CREATININE 0.61 mg/dl (0.60-1.20); POTASSIUM 3.5 mmol/L (3.5-5.1)
[2016-02-28 06:27] LABS: ALB/GLOB RATIO 0.9 (0.9-2)
--- NOTE | 2016-02-28 07:56 | Medical Consult ---
Consultation Date of Consultation: Feb 28, 2016. Attending Physician: Ian Munoz MD, PhD History of Present Illness 60 y/o female ( does not have routine health care) came in with painless jaundice/dark urine acutely no weightloss denies any abdominal pain throughout LFT's elevated and abnormal MRCP feels fine today Past Medical/Surgical History Medical Problems: (1) Jaundice Status: Acute Family History FH: cancer FH: heart disease Social History Smoking Status: Never Smoker Smokeless Tobacco Use: No Alcohol Use: very rarely Drug Use: none Marital Status: Housing Status: lives alone Occupation Status: unemployed Allergies Coded Allergies: No Known Allergies (Unverified , 02/26/16) Current Inpatient Medications Current Inpatient Medications Medications (Trade) Dose Ordered Sig/Pia Route Start Time Stop Time Status Last Admin Dose Admin Ioversol (Optiray 320) 125 ml UD PRN IV 02/26/16 16:00 03/01/16 15:59 Ondansetron HCl (Zofran Inj) 4 mg Q6H PRN IV 02/26/16 18:30 03/27/16 18:29 Potassium Citrate 10 meq 10 meq BID PO 02/27/16 09:00 03/28/16 08:59 02/27/16 20:52 10 MEQ Piperacillin Sod/ Tazobactam Sod/ Dextrose (Zosyn Iv/D5 100ml) 115 ml @ 28.75 mls/ hr Q8H IV 02/27/16 03:00 03/08/16 02:59 02/28/16 03:27 28.75 MLS/HR Piperacillin Sod/ Tazobactam Sod (Consult) 1 ea UD PRN N/A 02/26/16 21:00 03/27/16 20:59 Review of Systems Constitutional: + problem reported (dark urine/jaundice) Genitourinary - Female: + problem reported (dark urine) Integumentary: + color change (jaundice) Physical Exam Date Time Temp Pulse Resp B/P Pulse Ox O2 Delivery O2 Flow Rate FiO2 02/27/16 23:08 36.6 60 18 144/72 95 Room Air 02/27/16 20:24 Room Air 02/27/16 16:05 37.2 63 18 151/76 95 Room Air 02/27/16 07:56 Room Air General Appearance: no apparent distress Head: normocephalic Eyes: + pertinent finding (jaundiced) Neck: supple, no adenopathy Respiratory/Chest: no respiratory distress, no accessory muscle use Cardiovascular: regular rate, rhythm, no edema Abdomen/GI: normal bowel sounds, non tender, soft Extremities/Musculoskelatal: normal inspection 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, alert, oriented x 3 Skin: + jaundice Lymphatic: no adenopathy Laboratory Results Last 24 Hours Test 02/27/16 08:15 02/27/16 08:49 02/28/16 05:25 Gamma Glutamyl Transpeptidase 196 U/L Monoscreen NEG HIV (1&2) Ab and P24 Ag, 4th Gener NEG Influenza Type A (RT-PCR) Neg for Influ A Influenza Type B (RT-PCR) Neg for Influ B White Blood Count 3.46 K/uL Red Blood Count 3.90 M/uL Hemoglobin 11.9 g/dL Hematocrit 35.3 % Mean Corpuscular Volume 90.5 fL Mean Corpuscular Hemoglobin 30.5 pg Mean Corpuscular Hemoglobin Concent 33.7 g/dl RDW Standard Deviation 47.7 fL RDW Coefficient of Variation 14.6 % Platelet Count 168 K/uL Mean Platelet Volume 10.2 fL Sodium Level 143 mmol/L Potassium Level 3.5 mmol/L Chloride Level 107 mmol/L Carbon Dioxide Level 28 mmol/L Anion Gap 8.0 mmol/L Blood Urea Nitrogen 6 mg/dl Creatinine 0.61 mg/dl Est Creatinine Clear Calc Drug Dose 116.9 ml/min Estimated GFR () 114.2 Estimated GFR (Non- 98.5 BUN/Creatinine Ratio 9.8 Random Glucose 87 mg/dl Calcium Level 8.3 mg/dl Total Bilirubin 5.6 mg/dl Aspartate Amino Transf (AST/SGOT) 257 U/L Alanine Aminotransferase (ALT/SGPT) 443 U/L Alkaline Phosphatase 219 U/L Total Protein 6.2 gm/dl Albumin 2.9 gm/dl Globulin 3.3 gm/dl Albumin/Globulin Ratio 0.9 Assessment & Plan 1. painless jaundice with abnormal LFT's/MRCP rec ERCP to further define the bile ducts: ? stricture vs stones vs other ? endoscopic US +/- brushings repeat LFT's pending 2. gallstones will need lap katharine at some point after biliary obstruction dealt with/ diagnosed does not have acute cholecystitis will follow along closely
[2016-02-28 07:58] VITALS: BP 155/82; PULSE 71; TEMP 36.9; O2SAT 97
[2016-02-28] MEDS: POTASSIUM CITRATE 10 MEQ TAB PO SCH ×2 (08:15→20:28)
--- NOTE | 2016-02-28 11:27 | Progress Note ---
Subjective Date of Service: Feb 28, 2016. Subjective Pt evaluation today including: conversation w/ patient, physical exam, chart review, lab review, review of studies, conversation w/ freight traffic consultant, review of inpatient medication list Doing well, tolerate clear liquid diet, no nausea vomiting, no pain Problem List Medical Problems: (1) Jaundice Status: Acute Review of Systems Constitutional: No chills, No fatigue, No fever, No problem reported, No sweats , No weakness, No weight loss Eyes: No diplopia, No discharge, No eye pain, No redness, No worsening of vision ENT: No dental problems, No hearing loss, No nasal symptoms, No sore throat, No tinnitus, No trouble swallowing, No unusual epistaxis Respiratory: No cough, No dyspnea at rest, No dyspnea on exertion, No hemoptysis, No shortness of breath, No sputum, No wheezing Cardiac: No PND, No chest pain, No claudication, No edema, No orthopnea, No palpitations Abdomen: + problem reported (still jaundiced), No constipation, No diarrhea, No nausea, No pain, No vomiting Musculoskeletal: No calf pain, No joint pain, No muscle pain, No swelling Female : No abnormal vaginal bleeding, No dysuria, No hematuria, No incontinence, No urinary frequency, No vaginal discharge Neurologic: No balance problems, No memory loss, No numbness/tingling, No paralysis, No vertigo, No weakness Psychiatric: No anhedonism, No anxiety, No depression symptoms, No insomnia, No substance abuse Heme: No abnormal bleeding/bruising, No clotting problems, No night sweats, No swollen lymph nodes Endo: No excessive thirst, No excessive urination, No fatigue Skin: No bleeding, No color change, No itch, No new/changing skin lesions, No rash Objective Vital Signs Date Time Temp Pulse Resp B/P Pulse Ox O2 Delivery O2 Flow Rate FiO2 02/28/16 08:00 Room Air 02/28/16 07:58 36.9 71 16 155/82 97 Room Air 02/27/16 23:08 36.6 60 18 144/72 95 Room Air 02/27/16 20:24 Room Air 02/27/16 16:05 37.2 63 18 151/76 95 Room Air Physical Exam General Appearance: WD/WN, no apparent distress, + obese, + pertinent finding ( mild jaundice) Eyes: normal inspection, PERRL, EOMI, sclerae normal ENT: normal ENT inspection, hearing grossly normal, pharynx normal Neck: supple, no adenopathy, thyroid normal, no JVD, no carotid bruits, trachea midline Respiratory/Chest: chest non-tender, normal breath sounds, no respiratory distress, no accessory muscle use, + decreased breath sounds Cardiovascular: regular rate, rhythm, no edema, no gallop, no JVD, no murmur Abdomen: normal bowel sounds, non tender, soft, no organomegaly, no pulsatile mass Extremities: normal range of motion, non-tender, normal inspection, no pedal edema, no calf tenderness, normal capillary refill, pelvis stable 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, no motor/sensory deficits, alert, normal mood/affect, oriented x 3 Skin: normal color, warm/dry, no rash Lymphatic: no adenopathy Laboratory Results Last 24 Hours Test 02/28/16 05:25 White Blood Count 3.46 K/uL Red Blood Count 3.90 M/uL Hemoglobin 11.9 g/dL Hematocrit 35.3 % Mean Corpuscular Volume 90.5 fL Mean Corpuscular Hemoglobin 30.5 pg Mean Corpuscular Hemoglobin Concent 33.7 g/dl RDW Standard Deviation 47.7 fL RDW Coefficient of Variation 14.6 % Platelet Count 168 K/uL Mean Platelet Volume 10.2 fL Sodium Level 143 mmol/L Potassium Level 3.5 mmol/L Chloride Level 107 mmol/L Carbon Dioxide Level 28 mmol/L Anion Gap 8.0 mmol/L Blood Urea Nitrogen 6 mg/dl Creatinine 0.61 mg/dl Est Creatinine Clear Calc Drug Dose 116.9 ml/min Estimated GFR () 114.2 Estimated GFR (Non- 98.5 BUN/Creatinine Ratio 9.8 Random Glucose 87 mg/dl Calcium Level 8.3 mg/dl Total Bilirubin 5.6 mg/dl Aspartate Amino Transf (AST/SGOT) 257 U/L Alanine Aminotransferase (ALT/SGPT) 443 U/L Alkaline Phosphatase 219 U/L Total Protein 6.2 gm/dl Albumin 2.9 gm/dl Globulin 3.3 gm/dl Albumin/Globulin Ratio 0.9 Assessment and Plan 60 yo f admitted on 02/26/2016 because of suffering from jaundice, associated with elevated direct bili (5.3) and cholelithiasis. There is concern for choledocholithiasis so an MRCP was ordered to evaluate , GI and surgeon on the case Because of painless jaundice with abnormal LFT's/MRCP, need ERCP per GI Abnormal liver function with jaundice The differential diagnosis the is hepatic jaundice, or biliary track disease caused jaundice It is not possible of hemolytic because patient associated with abnormal liver function test Alkaline phosphatase moderated elevated MRCP results see below possibly secondary to obstruction such as choledocholithiasis? Hepatitis panel, mono, EB virus, CME, HIV were ordered Patient denied sick contact or recent traveling GI and surgeon recommend about ERCP, need to have Dr. Cormier to decide MRCP on 02/26/2016, the report is in below: 1. No intra or extrahepatic biliary ductal dilatation. No common bile duct calculi identified. 2. Apparent irregularity of the intrahepatic bile ducts with possible biliary strictures involving the intrahepatic bile ducts and the proximal common bile duct. However, there is no associated biliary ductal dilatation. These findings could be artifactual given respiratory motion on this exam. However, an etiology such as primary sclerosing cholangitis could have this imaging appearance. A repeat MRCP could be obtained as indicated. 3. Cholelithiasis with mild gallbladder wall thickening. Gallstones, will need lap katharine at some point after biliary obstruction dealt with/diagnosed does not have acute cholecystitis per surgeon, GI request to continue IV antibiotic for now Hypokalemia - Supplement in ED plus 10 meq bid daily - recheck in am Per progress note from Dr. Omer, Dr. Cormier will decide ERCP are not, Discussed with patient about a care plan, answer all questions Gi prophylaxis - Protonix bid 40 mg DVT Prophylaxis SCD, FULL CODE Continued [facility] stay due to: multiple IV medications needed Discharge planning: home
--- NOTE | 2016-02-28 11:54 | PROGRESS NOTE ---
DATE: 02/28/2016 Cross-coverage for [facility]. RACE: . I had the pleasure of seeing Reena Dean at her bedside today. She is doing quite well. She denies any abdominal pain, fevers, chills, nausea, vomiting, hematemesis, melena or hematochezia. She does continue to have dark urine and noted jaundice. She has no further complaints. PHYSICAL EXAMINATION: VITAL SIGNS: Include temp 36.9, pulse 71, respirations 16, blood pressure 155/82, pulse ox 97% on room air. ABDOMEN: Soft, nontender, nondistended. Positive bowel sounds. There is no hepatosplenomegaly or stigmata of chronic liver disease. LABORATORY STUDIES: From today include a sodium 143, potassium 3.5, chloride 107, bicarb 28, BUN 6, creatinine 0.6, blood glucose 87, total bilirubin is 5.6, AST 257, ALT 443, alk phos 219, albumin 6.2. IMPRESSION: A 60-year-old female with painless jaundice, cholelithiasis and abnormal liver MRI. PLAN: The patient will be kept n.p.o. after midnight. She will undergo an endoscopic ultrasound plus or minus an ERCP tomorrow for further evaluation of her symptoms. She will remain on IV antibiotics as per the primary team. Once again, thanks for allowing me to participate in the care of this patient. If you have any further questions, please do not hesitate in contacting me.
[2016-02-28 15:00] VITALS: BP 153/86; PULSE 83; TEMP 36.9; O2SAT 95
[2016-02-28] MEDS: PIPERACILL/TAZOBAC IV 4.5 GM in DEXTROSE 5% 100ML IV SCH (20:28)
[2016-02-28] MEDS: HEPARIN SOD 5000 UNIT/0.5 ML CARP SQ SCH (20:32)
[2016-02-28 23:33] VITALS: BP 147/84; PULSE 62; TEMP 36.8; O2SAT 95
[2016-02-29] MEDS: PIPERACILL/TAZOBAC IV 4.5 GM in DEXTROSE 5% 100ML IV SCH ×3 (03:54→20:09)
[2016-02-29 07:39] VITALS: BP 150/87; PULSE 75; TEMP 36.6; O2SAT 96
[2016-02-29 07:51] LABS: MEAN CELL VOLUME 91.1 fL (80-100); MEAN CORPUSCULAR HEMOGLOBIN 30.4 pg (25-34); MEAN CORPUSCULAR HGB CONC 33.3 g/dl (32-36); MEAN PLATELET VOLUME 10.4 fL (7.4-10.4); PLATELET COUNT 204 K/uL (130-400); RED BLOOD COUNT 4.28 M/uL (4.2-5.4); WHITE BLOOD COUNT 2.77 K/uL (4.8-10.8)
[2016-02-29 08:21] LABS: ALB/GLOB RATIO 0.8 (0.9-2); BUN/CREATININE RATIO 5.5 (10-20); CALCIUM 8.7 mg/dl (8.5-10.1); CREATININE 0.66 mg/dl (0.60-1.20); MAGNESIUM 2.1 mg/dl (1.8-2.4); POTASSIUM 3.2 mmol/L (3.5-5.1)
[2016-02-29] MEDS: HEPARIN SOD 5000 UNIT/0.5 ML CARP SQ SCH ×2 (08:51→21:57)
[2016-02-29] MEDS ORDERED: POTASSIUM CITRATE 10 MEQ TAB PO ONE (09:15)
[2016-02-29 09:38] VITALS: O2SAT 96
--- NOTE | 2016-02-29 11:29 | Hospitalist Progress Note ---
Hospitalist Progress Note Date of Service Feb 29, 2016. Subjective Pt evaluation today including: conversation w/ patient, physical exam, chart review, lab review, review of inpatient medication list Voiding: no voiding problems, no incontinence Patient states she is feeling well. NPO for procedure today. +Dark urine still present. Patient denies any fever, chills, sweats, lightheadedness, dizziness, vision changes, CP, palpitations, edema, SOB, wheezing, cough, abdominal pain, nausea, vomiting, diarrhea, urinary symptoms, melena, numbness/tingling, weakness, muscle/joint pain, anxiety/depression, active bleeding, or new skin discoloration/changes. Medications Current Inpatient Medications Medications (Trade) Dose Ordered Sig/Pia Route Start Time Stop Time Status Last Admin Dose Admin Ioversol (Optiray 320) 125 ml UD PRN IV 02/26/16 16:00 03/01/16 15:59 Ondansetron HCl (Zofran Inj) 4 mg Q6H PRN IV 02/26/16 18:30 03/27/16 18:29 Potassium Citrate (Urocit-K Tab) 10 meq BID PO 02/27/16 09:00 03/28/16 08:59 02/28/16 20:28 10 MEQ Piperacillin Sod/ Tazobactam Sod (Consult) 1 ea UD PRN N/A 02/26/16 21:00 03/27/16 20:59 Heparin Sodium (Porcine) 5000 unit 5,000 unit Q12 SQ 02/28/16 21:00 03/29/16 20:59 02/29/16 08:51 5,000 UNIT Piperacillin Sod/ Tazobactam Sod/ Dextrose (Zosyn Iv/D5 100ml) 120 ml @ 30 mls/hr Q8H IV 02/28/16 20:00 03/08/16 19:59 02/29/16 03:54 30 MLS/HR Objective Vital Signs Date Time Temp Pulse Resp B/P Pulse Ox O2 Delivery O2 Flow Rate FiO2 02/29/16 09:38 96 Room Air 02/29/16 07:39 36.6 75 14 150/87 96 Room Air 02/29/16 07:10 Room Air 02/28/16 23:55 Room Air 02/28/16 23:33 36.8 62 16 147/84 95 Room Air 02/28/16 19:00 Room Air 02/28/16 15:00 36.9 83 18 153/86 95 Room Air Physical Exam General Appearance: no apparent distress Eyes: PERRL ENT: hearing grossly normal Neck: supple Respiratory/Chest: lungs clear, no respiratory distress, no accessory muscle use Cardiovascular: regular rate, rhythm, no edema Abdomen: normal bowel sounds, non tender, soft Extremities: no pedal edema, no calf tenderness Neurologic/Psychiatric: alert, normal mood/affect, oriented x 3 Skin: warm/dry, no rash Laboratory Results Last 24 Hours Test 02/29/16 07:02 White Blood Count 2.77 K/uL Red Blood Count 4.28 M/uL Hemoglobin 13.0 g/dL Hematocrit 39.0 % Mean Corpuscular Volume 91.1 fL Mean Corpuscular Hemoglobin 30.4 pg Mean Corpuscular Hemoglobin Concent 33.3 g/dl RDW Standard Deviation 48.6 fL RDW Coefficient of Variation 14.5 % Platelet Count 204 K/uL Mean Platelet Volume 10.4 fL Sodium Level 144 mmol/L Potassium Level 3.2 mmol/L Chloride Level 105 mmol/L Carbon Dioxide Level 29 mmol/L Anion Gap 10.0 mmol/L Blood Urea Nitrogen 4 mg/dl Creatinine 0.66 mg/dl Est Creatinine Clear Calc Drug Dose 108.1 ml/min Estimated GFR () 111.3 Estimated GFR (Non- 96.0 BUN/Creatinine Ratio 5.5 Random Glucose 105 mg/dl Calcium Level 8.7 mg/dl Magnesium Level 2.1 mg/dl Total Bilirubin 5.6 mg/dl Aspartate Amino Transf (AST/SGOT) 264 U/L Alanine Aminotransferase (ALT/SGPT) 529 U/L Alkaline Phosphatase 219 U/L Total Protein 6.6 gm/dl Albumin 3.0 gm/dl Globulin 3.6 gm/dl Albumin/Globulin Ratio 0.8 Assessment and Plan This is a 60 yo f that is suffering from jaundice, elevated direct bili (5.3) and cholelithiasis. There is concern for choledocholithiasis so an MRCP shall be ordered to evaluate this as well as get a better visual of the liver. Abnormal liver function tests possibly secondary to obstruction such as choledocholithiasis - Admit med/surg - CMP daily -- LFTs stable, but remain elevated (02/28) - MRCP- 1. No intra or extrahepatic biliary ductal dilatation. No common bile duct calculi identified. 2. Apparent irregularity of the intrahepatic bile ducts with possible biliary strictures involving the intrahepatic bile ducts and the proximal common bile duct. However, there is no associated biliary ductal dilatation. These findings could be artifactual given respiratory motion on this exam. However, an etiology such as primary sclerosing cholangitis could have this imaging appearance. 3. Cholelithiasis with mild gallbladder wall thickening. - Consulted GI and General Surgery: -- Endoscopic ultrasound +/- ERCP on 02/28 -- Gallstones- will need lap cholecystectomy in the future - IV Zosyn for empiric therapy (started on 02/25) - Check Hepatitis panel, mono, EB virus, CME, HIV U/A dirty, culture negative Hypokalemia - Supplement in ED plus 10 mEq bid daily -- 3.2 today. Give additional 20 mEq. (02/28) - Continue to follow GI prophylaxis - Protonix bid 40 mg DVT prophylaxis: -Heparin 5000 units SQ q12 hrs -KRISTEN and SCDs Code Status: -LEVEL I, FULL CODE Dispo: -Endoscopic ultrasound +/- ERCP -Discharge to home once medically stable
[2016-02-29] MEDS: POTASSIUM CITRATE 10 MEQ TAB PO SCH ×2 (12:06→21:54)
--- NOTE | 2016-02-29 12:47 | Gastroenterology Progress Note ---
Progress Note Date of Service: Feb 29, 2016 Subjective Pt evaluation today including: conversation w/ patient, physical exam, chart review, lab review, review of studies Patient reports that she is hungry and would like to eat if we are not doing any invasive procedures today. She denies any complaints. Patient reports that she was in her normal state of health until [place] when she noticed her urine was dark. She began to increase her water intake and she states her urine returned to normal color. 3 days later, after dinner patient notices that her skin started to turn yellow. She denies any associated symptoms. She went to an urgent care who suggested to came to the ED. A thorough workup was completed. Review of Systems Constitutional: No chills, No fever Cardiac: No chest pain, No edema Abdomen: + dark urine, + jaundice, No GI bleeding, No acolic stools, No constipation, No diarrhea, No dysphagia, No nausea, No odynophagia, No pain, No vomiting Skin: + jaundice, No bleeding, No itch, No new/changing skin lesions, No rash Medications Current Inpatient Medications Medications (Trade) Dose Ordered Sig/Pia Route Start Time Stop Time Status Last Admin Dose Admin Ioversol (Optiray 320) 125 ml UD PRN IV 02/26/16 16:00 03/01/16 15:59 Ondansetron HCl (Zofran Inj) 4 mg Q6H PRN IV 02/26/16 18:30 03/27/16 18:29 Potassium Citrate (Urocit-K Tab) 10 meq BID PO 02/27/16 09:00 03/28/16 08:59 02/29/16 12:06 10 MEQ Piperacillin Sod/ Tazobactam Sod (Consult) 1 ea UD PRN N/A 02/26/16 21:00 03/27/16 20:59 Heparin Sodium (Porcine) 5000 unit 5,000 unit Q12 SQ 02/28/16 21:00 03/29/16 20:59 02/29/16 08:51 5,000 UNIT Piperacillin Sod/ Tazobactam Sod/ Dextrose (Zosyn Iv/D5 100ml) 120 ml @ 30 mls/hr Q8H IV 02/28/16 20:00 03/08/16 19:59 02/29/16 11:55 30 MLS/HR Objective Vital Signs Date Time Temp Pulse Resp B/P Pulse Ox O2 Delivery O2 Flow Rate FiO2 02/29/16 09:38 96 Room Air 02/29/16 07:39 36.6 75 14 150/87 96 Room Air 02/29/16 07:10 Room Air 02/28/16 23:55 Room Air 02/28/16 23:33 36.8 62 16 147/84 95 Room Air 02/28/16 19:00 Room Air 02/28/16 15:00 36.9 83 18 153/86 95 Room Air Physical Exam General Appearance: no apparent distress Eyes: PERRL ENT: hearing grossly normal Neck: supple, trachea midline Respiratory/Chest: lungs clear, normal breath sounds, no respiratory distress, no accessory muscle use Cardiovascular: regular rate, rhythm, no edema, no gallop, no JVD, no murmur Abdomen: normal bowel sounds, non tender, soft, no organomegaly, no pulsatile mass Neurologic/Psych: alert, normal mood/affect, oriented x 3 Skin: warm/dry, no rash, + jaundice Laboratory Results Last 24 Hours Test 02/29/16 07:02 White Blood Count 2.77 K/uL Red Blood Count 4.28 M/uL Hemoglobin 13.0 g/dL Hematocrit 39.0 % Mean Corpuscular Volume 91.1 fL Mean Corpuscular Hemoglobin 30.4 pg Mean Corpuscular Hemoglobin Concent 33.3 g/dl RDW Standard Deviation 48.6 fL RDW Coefficient of Variation 14.5 % Platelet Count 204 K/uL Mean Platelet Volume 10.4 fL Sodium Level 144 mmol/L Potassium Level 3.2 mmol/L Chloride Level 105 mmol/L Carbon Dioxide Level 29 mmol/L Anion Gap 10.0 mmol/L Blood Urea Nitrogen 4 mg/dl Creatinine 0.66 mg/dl Est Creatinine Clear Calc Drug Dose 108.1 ml/min Estimated GFR () 111.3 Estimated GFR (Non- 96.0 BUN/Creatinine Ratio 5.5 Random Glucose 105 mg/dl Calcium Level 8.7 mg/dl Magnesium Level 2.1 mg/dl Total Bilirubin 5.6 mg/dl Aspartate Amino Transf (AST/SGOT) 264 U/L Alanine Aminotransferase (ALT/SGPT) 529 U/L Alkaline Phosphatase 219 U/L Total Protein 6.6 gm/dl Albumin 3.0 gm/dl Globulin 3.6 gm/dl Albumin/Globulin Ratio 0.8 Assessment and Plan Repeat MRCP OK to feed from GI standpoint after MRCP NPO at midnight for EUS/ERCP tomorrow ATTESTATION: I have performed a history and physical examination of this patient and reviewed the electronic record. Specifically, on physical examination there is no abdominal tenderness. Repeat MRCP pending. I have discussed the case with LIBRADO Lopez. The above note reflects my findings, conclusions, and recommendations. Rush Pulido MD
--- NOTE | 2016-02-29 13:32 | Surgery Progress Note ---
Surgery Progress Note Date of Service Feb 29, 2016. Subjective no complaints awaiting repeat MRCP this afternoon Objective Vital Signs: Date Time Temp Pulse Resp B/P Pulse Ox O2 Delivery O2 Flow Rate FiO2 02/29/16 09:38 96 Room Air 02/29/16 07:39 36.6 75 14 150/87 96 Room Air 02/29/16 07:10 Room Air 02/28/16 23:55 Room Air 02/28/16 23:33 36.8 62 16 147/84 95 Room Air 02/28/16 19:00 Room Air 02/28/16 15:00 36.9 83 18 153/86 95 Room Air Laboratory Results: Results Past 24 Hours Test 02/29/16 07:02 Range/Units White Blood Count 2.77 4.8-10.8 K/uL Red Blood Count 4.28 4.2-5.4 M/uL Hemoglobin 13.0 12.0-16.0 g/dL Hematocrit 39.0 37-47 % Mean Corpuscular Volume 91.1 80-100 fL Mean Corpuscular Hemoglobin 30.4 25-34 pg Mean Corpuscular Hemoglobin Concent 33.3 32-36 g/dl RDW Standard Deviation 48.6 36.4-46.3 fL RDW Coefficient of Variation 14.5 11.5-14.5 % Platelet Count 204 130-400 K/uL Mean Platelet Volume 10.4 7.4-10.4 fL Sodium Level 144 136-145 mmol/L Potassium Level 3.2 3.5-5.1 mmol/L Chloride Level 105 98-107 mmol/L Carbon Dioxide Level 29 21-32 mmol/L Anion Gap 10.0 3-11 mmol/L Blood Urea Nitrogen 4 7-18 mg/dl Creatinine 0.66 0.60-1.20 mg/dl Est Creatinine Clear Calc Drug Dose 108.1 ml/min Estimated GFR () 111.3 Estimated GFR (Non- 96.0 BUN/Creatinine Ratio 5.5 10-20 Random Glucose 105 70-99 mg/dl Calcium Level 8.7 8.5-10.1 mg/dl Magnesium Level 2.1 1.8-2.4 mg/dl Total Bilirubin 5.6 0.2-1 mg/dl Aspartate Amino Transf (AST/SGOT) 264 15-37 U/L Alanine Aminotransferase (ALT/SGPT) 529 12-78 U/L Alkaline Phosphatase 219 45-117 U/L Total Protein 6.6 6.4-8.2 gm/dl Albumin 3.0 3.4-5.0 gm/dl Globulin 3.6 2.5-4.0 gm/dl Albumin/Globulin Ratio 0.8 0.9-2 Assessment & Plan painless jaundice labs unchanged repeat MRCP due to artifact, await ERCP
--- NOTE | 2016-02-29 15:49 | DIAGNOSTIC IMAGING REPORT ---
ADDENDUM Addendum: An additional consideration given the imaging findings would be autoimmune pancreatitis. This could be correlated with IgG4 levels. Electronically signed by: Efrain Lara M.D. 02/29/2016 4:22 PM Dictated Date/Time: 02/29/2016 4:18 PM ORIGINAL REPORT MRCP CLINICAL HISTORY: Gallstones. Elevated bilirubin. Painless jaundice. COMPARISON STUDY: CT of the abdomen and pelvis, right upper quadrant ultrasound and MRCP February 26, 2016. TECHNIQUE: Utilizing a 1.5 Kary magnet, multiplanar, multiecho imaging of the abdomen was performed utilizing heavily T2 weighted sequences. No intravenous contrast was administered. FINDINGS: No intra or extrahepatic biliary ductal dilatation is identified. No common bile duct calculi are identified. There are multiple gallstones within the gallbladder. Mild gallbladder wall thickening is noted without pericholecystic fluid. Mild splenomegaly is noted. Liver morphology is normal. The caliber of the main pancreatic duct is normal. The 3-D MRCP sequence is compromised by motion artifact. However, no significant irregularity of the intrahepatic bile ducts is shown on the thick slab MRCP. No abdominal ascites or adenopathy is present. Unenhanced images of the adrenal glands and kidneys are normal. No pancreatic mass is identified on this noncontrast exam. IMPRESSION: 1. No intra or extrahepatic biliary ductal dilatation. No common bile duct calculi. 2. Suboptimal evaluation of the biliary tree on the 3-D MRCP sequence due to motion artifact. No convincing stricture or significant irregularity of the intrahepatic bile ducts on the remainder of the MRCP sequences. 3. Cholelithiasis. 4. Mild splenomegaly. Electronically signed by: Efrain Lara M.D. 02/29/2016 3:47 PM Dictated Date/Time: 02/29/2016 3:35 PM
[2016-02-29 16:00] VITALS: O2SAT 96
[2016-02-29 16:11] VITALS: BP 140/87; PULSE 61; TEMP 36.8; O2SAT 93
[2016-02-29 16:44] LABS: CYTOMEGALOVIRUS IGG AB 4.01; EBV EARLY ANTIGEN AB <0.91 INDEX; EPSTEIN BARR VIR CAPSID IGG <0.91 INDEX
[2016-03-01] VITALS: BP 128/80; PULSE 57; TEMP 36.4; O2SAT 97
[2016-03-01] MEDS: PIPERACILL/TAZOBAC IV 4.5 GM in DEXTROSE 5% 100ML IV SCH ×2 (04:00→12:16)
[2016-03-01 05:38] LABS: HEMATOCRIT 37.6 % (37-47); MEAN CELL VOLUME 90.2 fL (80-100); MEAN CORPUSCULAR HEMOGLOBIN 30.7 pg (25-34); MEAN PLATELET VOLUME 10.3 fL (7.4-10.4); PLATELET COUNT 191 K/uL (130-400); RED BLOOD COUNT 4.17 M/uL (4.2-5.4); WHITE BLOOD COUNT 3.55 K/uL (4.8-10.8)
[2016-03-01 06:19] LABS: BUN/CREATININE RATIO 9.8 (10-20); CALCIUM 8.6 mg/dl (8.5-10.1); CREATININE 0.61 mg/dl (0.60-1.20); POTASSIUM 3.2 mmol/L (3.5-5.1)
[2016-03-01 06:21] LABS: ALB/GLOB RATIO 0.8 (0.9-2)
[2016-03-01] MEDS ORDERED: POTASSIUM CHLORIDE 20 MEQ TABCR PO ONE (07:30)
[2016-03-01 07:46] VITALS: BP 148/76; PULSE 84; TEMP 36.7; O2SAT 97
[2016-03-01] MEDS: HEPARIN SOD 5000 UNIT/0.5 ML CARP SQ SCH (08:54)
--- NOTE | 2016-03-01 11:10 | Gastroenterology Progress Note ---
Progress Note Date of Service: Mar 01, 2016 Subjective Pt evaluation today including: conversation w/ patient, physical exam, chart review Patient denies any complaints. She reports that she feels the same prior to admission. She states that she feels as if her jaundice is slowly getting better. She reports pruritis. She denies any abdominal pain, nausea, vomiting, change of stools. Repeat MRCP was inconclusive. A discussion occurred with the patient and myself about proceeding with EGD/EUS/ERCP. We will proceed with an EGD/EUS tomorrow as an outpatient. Dr. Gonsalez was contacted about the procedure. The patient will be contacted with a verified time, date and location after all is cleared with the schedulers. Patient states that she had anesthesia as a child for a hip operation. Repeat MRCP 03/01/16: No intra or extrahepatic biliary ductal dilatation is identified. No common bile duct calculi are identified. There are multiple gallstones within the gallbladder. Mild gallbladder wall thickening is noted without pericholecystic fluid. Mild splenomegaly is noted. Liver morphology is normal.The caliber of the main pancreatic duct is normal. The 3-D MRCP sequence is compromised by motion artifact. However, no significant irregularity of the intrahepatic bile ducts is shown on the thick slab MRCP. No abdominal ascites or adenopathy is present. Unenhanced images of the adrenal glands and kidneys are normal. No pancreatic mass is identified on this noncontrast exam. Review of Systems Constitutional: No chills, No fever Respiratory: No cough, No shortness of breath Cardiac: No chest pain, No edema Abdomen: No GI bleeding, No constipation, No diarrhea, No nausea, No pain, No vomiting Skin: + itch, + jaundice, No rash Medications Current Inpatient Medications Medications (Trade) Dose Ordered Sig/Pia Route Start Time Stop Time Status Last Admin Dose Admin Ioversol (Optiray 320) 125 ml UD PRN IV 02/26/16 16:00 03/01/16 15:59 Ondansetron HCl (Zofran Inj) 4 mg Q6H PRN IV 02/26/16 18:30 03/27/16 18:29 Piperacillin Sod/ Tazobactam Sod (Consult) 1 ea UD PRN N/A 02/26/16 21:00 03/27/16 20:59 Heparin Sodium (Porcine) 5000 unit 5,000 unit Q12 SQ 02/28/16 21:00 03/29/16 20:59 03/01/16 08:54 5,000 UNIT Piperacillin Sod/ Tazobactam Sod/ Dextrose (Zosyn Iv/D5 100ml) 120 ml @ 30 mls/hr Q8H IV 02/28/16 20:00 03/08/16 19:59 03/01/16 04:00 30 MLS/HR Potassium Chloride (Klor-Con M10) 10 meq BID PO 03/01/16 21:00 03/31/16 20:59 Ursodiol (Actigall Cap) 600 mg BID PO 03/01/16 21:00 03/31/16 20:59 Objective Vital Signs Date Time Temp Pulse Resp B/P Pulse Ox O2 Delivery O2 Flow Rate FiO2 03/01/16 08:21 Room Air 03/01/16 07:46 36.7 84 16 148/76 97 Room Air 03/01/16 00:30 Room Air 03/01/16 00:00 36.4 57 16 128/80 97 Room Air 02/29/16 22:28 Room Air 02/29/16 16:11 36.8 61 18 140/87 93 Room Air 02/29/16 16:00 96 Room Air Physical Exam General Appearance: no apparent distress (patient states that she feels well and is hungry) Eyes: PERRL ENT: hearing grossly normal Neck: supple, no adenopathy, thyroid normal, no JVD Respiratory/Chest: chest non-tender, lungs clear, normal breath sounds, no respiratory distress, no accessory muscle use Cardiovascular: regular rate, rhythm, no edema, no gallop, no JVD, no murmur Abdomen: normal bowel sounds, non tender, soft, no organomegaly Neurologic/Psych: alert, normal mood/affect, oriented x 3 Skin: warm/dry, + jaundice, + pertinent finding (pruritis) Laboratory Results Last 24 Hours Test 03/01/16 04:54 White Blood Count 3.55 K/uL Red Blood Count 4.17 M/uL Hemoglobin 12.8 g/dL Hematocrit 37.6 % Mean Corpuscular Volume 90.2 fL Mean Corpuscular Hemoglobin 30.7 pg Mean Corpuscular Hemoglobin Concent 34.0 g/dl RDW Standard Deviation 47.2 fL RDW Coefficient of Variation 14.3 % Platelet Count 191 K/uL Mean Platelet Volume 10.3 fL Sodium Level 142 mmol/L Potassium Level 3.2 mmol/L Chloride Level 104 mmol/L Carbon Dioxide Level 27 mmol/L Anion Gap 11.0 mmol/L Blood Urea Nitrogen 6 mg/dl Creatinine 0.61 mg/dl Est Creatinine Clear Calc Drug Dose 116.9 ml/min Estimated GFR () 114.2 Estimated GFR (Non- 98.5 BUN/Creatinine Ratio 9.8 Random Glucose 94 mg/dl Calcium Level 8.6 mg/dl Total Bilirubin 5.0 mg/dl Aspartate Amino Transf (AST/SGOT) 272 U/L Alanine Aminotransferase (ALT/SGPT) 568 U/L Alkaline Phosphatase 202 U/L Total Protein 6.3 gm/dl Albumin 2.8 gm/dl Globulin 3.5 gm/dl Albumin/Globulin Ratio 0.8 Assessment and Plan Patient is a 60 year old female with insignificant past medical history, with elevated TB, DB, liver profile, gallstones and irregularity of the intrahepatic bile ducts with possible biliary strictures involving the intrahepatic bile ducts and the proximal common bile duct without any ductal dilation. Differentials include biliary obstruction, PSC, autoimmune pancreatitis Advance diet PO Ursodiol 600 BID Outpatient EUS tomorrow at [facility] with Dr. Gonsalez Patient verbalized understanding of the current plan GI "ok" to discharge ATTESTATION: I have performed a history and physical examination of this patient and reviewed the electronic record. Specifically, on review of imaging with Dr Osorio the MRI studies are not diagnostic for sclerosing cholangitis, but do show normal extrahepatic ducts and no intrahepatic biliary dilation. This leaves the differential diagnosis open to include cholestatic hepatitis, PBC, or occult choledocholithiasis. I have discussed the case and further workup with Drs. Gonsalez and Genia as well as the patient. We will proceed with outpatient EUS and probable liver biopsy. She will need further serologies. I have discussed the case with LIBRADO Lopez. The above note reflects my findings, conclusions, and recommendations. Rush Pulido MD
[2016-03-01] MEDS ORDERED: ACT300 PO (11:24)
[2016-03-01] MEDS ORDERED: POTA10CA28 PO (11:24)
--- NOTE | 2016-03-01 11:52 | Surgery Progress Note ---
Surgery Progress Note Date of Service Mar 01, 2016. Subjective + feeling well Objective Vital Signs: Date Time Temp Pulse Resp B/P Pulse Ox O2 Delivery O2 Flow Rate FiO2 03/01/16 08:21 Room Air 03/01/16 07:46 36.7 84 16 148/76 97 Room Air 03/01/16 00:30 Room Air 03/01/16 00:00 36.4 57 16 128/80 97 Room Air 02/29/16 22:28 Room Air 02/29/16 16:11 36.8 61 18 140/87 93 Room Air 02/29/16 16:00 96 Room Air General Appearance: no apparent distress Head: normocephalic Abdomen: normal bowel sounds, non tender, non distended, soft Laboratory Results: Results Past 24 Hours Test 03/01/16 04:54 Range/Units White Blood Count 3.55 4.8-10.8 K/uL Red Blood Count 4.17 4.2-5.4 M/uL Hemoglobin 12.8 12.0-16.0 g/dL Hematocrit 37.6 37-47 % Mean Corpuscular Volume 90.2 80-100 fL Mean Corpuscular Hemoglobin 30.7 25-34 pg Mean Corpuscular Hemoglobin Concent 34.0 32-36 g/dl RDW Standard Deviation 47.2 36.4-46.3 fL RDW Coefficient of Variation 14.3 11.5-14.5 % Platelet Count 191 130-400 K/uL Mean Platelet Volume 10.3 7.4-10.4 fL Sodium Level 142 136-145 mmol/L Potassium Level 3.2 3.5-5.1 mmol/L Chloride Level 104 98-107 mmol/L Carbon Dioxide Level 27 21-32 mmol/L Anion Gap 11.0 3-11 mmol/L Blood Urea Nitrogen 6 7-18 mg/dl Creatinine 0.61 0.60-1.20 mg/dl Est Creatinine Clear Calc Drug Dose 116.9 ml/min Estimated GFR () 114.2 Estimated GFR (Non- 98.5 BUN/Creatinine Ratio 9.8 10-20 Random Glucose 94 70-99 mg/dl Calcium Level 8.6 8.5-10.1 mg/dl Total Bilirubin 5.0 0.2-1 mg/dl Aspartate Amino Transf (AST/SGOT) 272 15-37 U/L Alanine Aminotransferase (ALT/SGPT) 568 12-78 U/L Alkaline Phosphatase 202 45-117 U/L Total Protein 6.3 6.4-8.2 gm/dl Albumin 2.8 3.4-5.0 gm/dl Globulin 3.5 2.5-4.0 gm/dl Albumin/Globulin Ratio 0.8 0.9-2 Assessment & Plan pt to be discharged today for out pt ercp/US by GI f/u with me in 2 weeks will discuss lap katharine pending ercp findings
--- NOTE | 2016-03-01 12:07 | Discharge Summary ---
Discharge Summary Admission Date: Feb 26, 2016 at 18:20 Discharge Date: Mar 01, 2016 Discharge Disposition: Home Principal Diagnosis: Jaundice Problems/Secondary Diagnoses: 1. Elevated liver enzymes 2. Cholelithiasis 3. Hypokalemia Procedures: MRCP REPEAT ADDENDUM Addendum: An additional consideration given the imaging findings would be autoimmune pancreatitis. This could be correlated with IgG4 levels. Electronically signed by: Efrain Lara M.D. 02/29/2016 4:22 PM Dictated Date/Time: 02/29/2016 4:18 PM ORIGINAL REPORT MRCP CLINICAL HISTORY: Gallstones. Elevated bilirubin. Painless jaundice. COMPARISON STUDY: CT of the abdomen and pelvis, right upper quadrant ultrasound and MRCP February 26, 2016. TECHNIQUE: Utilizing a 1.5 Kary magnet, multiplanar, multiecho imaging of the abdomen was performed utilizing heavily T2 weighted sequences. No intravenous contrast was administered. FINDINGS: No intra or extrahepatic biliary ductal dilatation is identified. No common bile duct calculi are identified. There are multiple gallstones within the gallbladder. Mild gallbladder wall thickening is noted without pericholecystic fluid. Mild splenomegaly is noted. Liver morphology is normal. The caliber of the main pancreatic duct is normal. The 3-D MRCP sequence is compromised by motion artifact. However, no significant irregularity of the intrahepatic bile ducts is shown on the thick slab MRCP. No abdominal ascites or adenopathy is present. Unenhanced images of the adrenal glands and kidneys are normal. No pancreatic mass is identified on this noncontrast exam. IMPRESSION: 1. No intra or extrahepatic biliary ductal dilatation. No common bile duct calculi. 2. Suboptimal evaluation of the biliary tree on the 3-D MRCP sequence due to motion artifact. No convincing stricture or significant irregularity of the intrahepatic bile ducts on the remainder of the MRCP sequences. 3. Cholelithiasis. 4. Mild splenomegaly. Electronically signed by: Efrain Lara M.D. 02/29/2016 3:47 PM Dictated Date/Time: 02/29/2016 3:35 PM The status of this report is Signed. Draft = Not yet reviewed or approved by Radiologist. Signed = Reviewed and approved by Radiologist. MRCP CLINICAL HISTORY: Jaundice and cholelithiasis. COMPARISON STUDY: CT of the abdomen and pelvis and right upper ultrasound February 26, 2016. TECHNIQUE: Utilizing a 1.5 Kary magnet and dedicated coil, multiplanar, multi echo imaging of the upper abdomen was performed utilizing heavily T2 weighted sequences. No intravenous contrast was administered. FINDINGS: There are multiple gallstones within the gallbladder. Mild gallbladder wall thickening is noted with no pericholecystic fluid. Borderline splenomegaly is noted. Liver morphology is normal. No intra or extrahepatic biliary ductal dilatation is present. There is apparent intrahepatic biliary ductal irregularity with apparent multifocal strictures. This could be artifactual given respiratory motion artifact on the 3-D MRCP sequence. There is also apparent irregular narrowing of the proximal common bile duct without upstream dilatation. The course and caliber of the main pancreatic duct is normal. There is no peripancreatic infiltration or fluid. No common bile duct calculi are identified on this exam. Unenhanced images of the kidneys and adrenal glands are unremarkable. There is no upper abdominal adenopathy or ascites. IMPRESSION: 1. No intra or extrahepatic biliary ductal dilatation. No common bile duct calculi identified. 2. Apparent irregularity of the intrahepatic bile ducts with possible biliary strictures involving the intrahepatic bile ducts and the proximal common bile duct. However, there is no associated biliary ductal dilatation. These findings could be artifactual given respiratory motion on this exam. However, an etiology such as primary sclerosing cholangitis could have this imaging appearance. A repeat MRCP could be obtained as indicated. 3. Cholelithiasis with mild gallbladder wall thickening. Electronically signed by: Efrain Lara M.D. 02/26/2016 8:50 PM Dictated Date/Time: 02/26/2016 8:21 PM The status of this report is Signed. Draft = Not yet reviewed or approved by Radiologist. Signed = Reviewed and approved by Radiologist. ABDOMINAL ULTRASOUND, RIGHT UPPER QUADRANT HISTORY: Elevated bilirubin.. COMPARISON: CT of the abdomen and pelvis February 26, 2016. FINDINGS: Liver morphology is normal. No hepatic lesions are identified. There is no biliary ductal dilatation. The common bile measures 5 mm in caliber. The pancreatic body is normal. The head and tail are obscured. There are numerous gallstones within the gallbladder. Mild gallbladder wall thickening is noted. The wall measures 4 mm in thickness. There was no pericholecystic fluid. No sonographic Torres sign was elicited. There was no right hydronephrosis. IMPRESSION: 1. Cholelithiasis and mild gallbladder wall thickening. No sonographic Torres's sign or pericholecystic fluid. 2. No biliary ductal dilatation. 3. Partially obscured pancreas. Electronically signed by: Efrain Lara M.D. 02/26/2016 6:02 PM Dictated Date/Time: 02/26/2016 6:00 PM The status of this report is Signed. Draft = Not yet reviewed or approved by Radiologist. Signed = Reviewed and approved by Radiologist. CT ABD/PELVIS IV CONTRAST ONLY CLINICAL HISTORY: The heart appearing. Abnormal LFTs. COMPARISON STUDY: None. TECHNIQUE: Following the IV administration of 119 mL of Optiray-320, CT scan of the abdomen and pelvis was performed from the lung bases to the proximal femurs. Images are reviewed in the axial, sagittal, and coronal planes. IV contrast was administered without complication. CT DOSE: 1145.94 mGycm FINDINGS: Lower chest: There is pulmonary emphysema. There are no pleural effusions. Liver: There is mild hepatic steatosis. No focal masses are visualized. Gallbladder: There is gallbladder wall edema. This a nonspecific finding but given history of abnormal LFTs it is possibly secondary to hepatocellular disease. Ultrasound follow-up might be considered. Spleen: The spleen measures 10.3 cm in length. No focal masses are visualized Pancreas: Masses are visualized. There is slight indistinctness of the fat surrounding the pancreatic tail. Correlation with biochemical markers is recommended to exclude a minimal pancreatitis Adrenal glands: Unremarkable. Kidneys: There is symmetric renal cortical enhancement. The kidneys are normal in size without hydronephrosis. Bowel: There are no transition zones indicate bowel obstruction. The appendix appears normal. There is clonic diverticulosis. There are no peridiverticular inflammatory changes. Peritoneum: There is no intraperitoneal free air or abdominal ascites. Vasculature: The abdominal aorta is normal in course and caliber. Adenopathy: None. Pelvic viscera: The bladder, and pelvic viscera are unremarkable. Skeletal structures: There are extensive bilateral hip deformities. These appear chronic. IMPRESSION: 1. No evidence of bowel obstruction. No evidence of free air 2. Hepatic steatosis 3. Gallbladder wall thickening 4. Minimal stranding of the fat adjacent the pancreatic tail. Correlation with appropriate biochemical markers is recommended to exclude a minimal pancreatitis 5. Normal appendix. 6. Diverticulosis. No evidence of acute peridiverticular inflammatory change Electronically signed by: Loc Osorio M.D. 02/26/2016 4:35 PM Dictated Date/Time: 02/26/2016 4:31 PM The status of this report is Signed. Draft = Not yet reviewed or approved by Radiologist. Signed = Reviewed and approved by Radiologist. Consultations: GI- Dr. Pulido and LIBRADO Lopez and Dr. Omer General Surgery- Dr. Oakley and Richard Lee JR PAJerryC Medication Reconciliation New Medications: Potassium Chloride (Micro-K Ext Rel) 10 Meq Capcr 10 MEQ PO BID for 14 Days, #28 TABS Ursodiol (Ursodiol) 300 Mg Cap 600 MG PO BID for 14 Days, #56 CAP Continued Medications: Ibuprofen Tab (Advil) 200 Mg Tab 400 MG PO HS, TAB Referrals At Discharge Follow up Referrals: Photo Mask Inspector Referral - 03/02/16 with Rush Pulido M.D. Surgery Referral - Within 1-2 Weeks with Eric Oakley D.O. Discharge Exam Review of Systems: Constitutional: No chills, No fatigue, No fever, No sweats, No weakness Respiratory: No cough, No hemoptysis, No shortness of breath Cardiovascular: No chest pain, No edema, No palpitations Abdomen: No GI bleeding, No constipation, No diarrhea, No nausea, No pain, No vomiting Musculoskeletal: No calf pain, No joint pain, No muscle pain, No swelling Genitourinary - Female: No dysuria, No hematuria Neurologic: No numbness/tingling, No weakness Psychiatric: No anxiety, No depression symptoms Hematologic / Lymphatic: No abnormal bleeding/bruising Integumentary: No itch, No new/changing skin lesions, No rash Physical Exam: General Appearance: no apparent distress Eyes: PERRL ENT: hearing grossly normal Neck: supple Respiratory/Chest: lungs clear, normal breath sounds, no respiratory distress, no accessory muscle use Cardiovascular: regular rate, rhythm, no edema, normal peripheral pulses Abdomen / GI: normal bowel sounds, non tender, soft Extremities: no calf tenderness, no pedal edema Neurologic/Psychiatric: alert, normal mood/affect, oriented x 3 Skin: warm/dry, no rash Hospital Course A 60 yo f that is presenting to us with persistently dark urine requiring further evaluation. She states that she started to noticed a tea coloured urine around MAY. the first time she noticed it she recalled a mild diffuse abdominal ache which self resolved. Since that time she has had an ongoing dark urine which even with adequate hydration would remain dark. She then noticed that she started to get jaundiced in colour and decided to go to [facility]. They evaluated the patient because of the bili they noticed in the UA they recommended further evaluation in the ED. Aside from symptoms noted above she noticed that with very rich meals she would have episodes of N&V with very mild abdominal pain. This started on thanksgiving. Since this started she tried to eat bland meals and thought that when she had rich meals it was "because her body was not used to it". She notes weight loss but attributes it to her new regimen. She denies any change to the color of her stool but feels it may be "looser" than normal. Abnormal liver function tests possibly secondary to obstruction such as choledocholithiasis - Admit med/surg - CMP daily -- LFTs stable, but remain elevated - MRCP- 1. No intra or extrahepatic biliary ductal dilatation. No common bile duct calculi identified. 2. Apparent irregularity of the intrahepatic bile ducts with possible biliary strictures involving the intrahepatic bile ducts and the proximal common bile duct. However, there is no associated biliary ductal dilatation. These findings could be artifactual given respiratory motion on this exam. However, an etiology such as primary sclerosing cholangitis could have this imaging appearance. 3. Cholelithiasis with mild gallbladder wall thickening. - Repeat MRCP - Consulted GI and General Surgery: -- Endoscopic ultrasound +/- ERCP and EGD as outpatient on 03/02 with GI. -- Per GI patient was placed on Ursodiol 600 mg PO BID. Patient was instructed to discuss treatment with GI tomorrow at scheduled appointment. -- Gallstones- will need lap cholecystectomy in the future. Instructed to f/ u with general surgery in 2 weeks. - IV Zosyn for empiric therapy (started on 02/25) - Check Hepatitis panel, mono, EB virus, CMV, HIV -- +CMV IgG Ab of 4.01 U/A dirty, culture negative Hypokalemia - Supplement with potassium citrate in ED plus 10 mEq bid daily -- 3.2 today. Give additional 20 mEq. (02/28) - Continue to follow - Potassium of 3.2 on 03/01. Switch from potassium citrate to potassium chloride. Given 40 mEq KCL PO x1 -- Patient was discharged with 10 mEq KCL PO BID and instructed to f/u with PCP. GI prophylaxis - Protonix bid 40 mg DVT prophylaxis: - Heparin 5000 units SQ q12 hrs - KRISTEN and SCDs Code Status: - LEVEL I, FULL CODE Dispo: - Discharge to home with GI f/u on 03/02 for EGD and EUS. Total Time Spent: Greater than 30 minutes This includes examination of the patient, discharge planning, medication reconciliation, and communication with other providers. Discharge Instructions Please refer to the electronic Patient Visit Report (Discharge Instructions) for additional information. Follow-Up Please follow-up with your PCP with Dr. Lara's office w/ Laura Green PA-C on MondayMar 08 at 1:45 pm. Please follow up with GI in on 03/02/16 Follow-up with General Surgery in 2 weeks Please follow-up/keep all of your subspecialty appointments Additional Copies To Laura Green PA
--- NOTE | 2016-03-01 12:08 | Discharge Instructions ---
Discharge Instructions Admission Reason for Admission: Cholelithiasis, Elevated Liver Enzymes Discharge Discharge Diagnosis / Problem: Jaundice; gallstones; elevated liver enzymes Discharge Goals Goal(s): Learn about illness, Diagnostic testing, Therapeutic intervention, Prevent Disease Progression Activity Recommendations Activity Limitations: resume your previous activity . Instructions / Follow-Up Instructions / Follow-Up You need to follow-up with GI, Dr. Pulido, tomorrow (03/02), for outpatient EGD (upper endoscopy) and (EUS) endoscopic ultrasound, as directed by their office. Office # [phone] Dr. Pulido has started you on Ursodiol 600 mg by mouth twice per day. This medication is to treat your gallstones. You have been given a script for 14 days. You will need to talk to Dr. Pulido tomorrow (03/02) regarding this prescription and how long it will need to be continued. They will need to write you a script for additional treatment beyond 14 days. Hypokalemia (low potassium)- Please take Potassium Chloride 10 mEq by mouth twice per day. You need to follow-up with your PCP. They will further evaluate and manage your potassium level and medication. You need to follow-up with General Surgery regarding your gallstones. In the future, you may need your gallbladder removed. Office # [phone] Please follow-up with your PCP on Dr. Lara's office w/ Laura Green PA-C on MondayMar 08 at 1:45 pm. Please follow-up with GI tomorrow (03/02), as directed by their office. Please follow-up with General Surgery in 2 weeks for your gallstones. Please follow-up/keep all of your subspecialty appointments. Current Hospital Diet Patient's current hospital diet: Regular Diet, AHA Diet (Heart Healthy) Discharge Diet Recommended Diet: AHA Diet (Heart Healthy) Procedures Procedures Performed: 1. Abdominal CT 2. Gallbladder U/S 3. MRCP x2 Pending Studies Studies pending at discharge: no Laboratory Results Last 24 Hours Test 03/01/16 04:54 White Blood Count 3.55 K/uL Red Blood Count 4.17 M/uL Hemoglobin 12.8 g/dL Hematocrit 37.6 % Mean Corpuscular Volume 90.2 fL Mean Corpuscular Hemoglobin 30.7 pg Mean Corpuscular Hemoglobin Concent 34.0 g/dl RDW Standard Deviation 47.2 fL RDW Coefficient of Variation 14.3 % Platelet Count 191 K/uL Mean Platelet Volume 10.3 fL Sodium Level 142 mmol/L Potassium Level 3.2 mmol/L Chloride Level 104 mmol/L Carbon Dioxide Level 27 mmol/L Anion Gap 11.0 mmol/L Blood Urea Nitrogen 6 mg/dl Creatinine 0.61 mg/dl Est Creatinine Clear Calc Drug Dose 116.9 ml/min Estimated GFR () 114.2 Estimated GFR (Non- 98.5 BUN/Creatinine Ratio 9.8 Random Glucose 94 mg/dl Calcium Level 8.6 mg/dl Total Bilirubin 5.0 mg/dl Aspartate Amino Transf (AST/SGOT) 272 U/L Alanine Aminotransferase (ALT/SGPT) 568 U/L Alkaline Phosphatase 202 U/L Total Protein 6.3 gm/dl Albumin 2.8 gm/dl Globulin 3.5 gm/dl Albumin/Globulin Ratio 0.8 Medical Emergencies . Who to Call and When: Medical Emergencies: If at any time you feel your situation is an emergency, please call 911 immediately. . Non-Emergent Contact Non-Emergency issues call your: Primary Care Provider, Inbound Sales Consultant Call Non-Emergent contact if: you have a fever, your pain is unusual for you, your pain is concerning you, you have any medication questions . Past History Medical & Surgical History: (1) Jaundice (2) Cholelithiasis (3) Elevated liver enzymes (4) Urinary problem . "Provider Documentation" section prepared by Tracy Jean Baptiste. VTE Core Measure Inpt VTE Proph given/why not?: SCD's
[2016-03-01 15:05] VITALS: BP 129/74; PULSE 86; TEMP 36.7; O2SAT 98
[2016-03-01 15:38] VITALS: BP 148/76; PULSE 84; TEMP 36.7; O2SAT 97
[2016-03-01] MEDS ORDERED: POTASSIUM CHLORIDE 10 MEQ TABCR PO SCH (21:00)
[2016-03-01] MEDS ORDERED: URSODIOL 300 MG CAP PO SCH (21:00)
[2016-06-03] MEDS ORDERED: HYDR-5688 PO (08:41)
== END 2016-03-01 17:00 | disposition home or self-care (01) | DRG 445 ==
LOC: ENRESERVTM → ENRESERVDT → C.EDB 13:12 → C.MSW 18:20
PROVIDERS: ADMIT Hospitalist; ATTEND Internal Medicine
DX: K80.21 Calculus of gallbladder without cholecystitis with obstruction (principal); K86.1 Other chronic pancreatitis; K82.9 Disease of gallbladder, unspecified; R94.5 Abnormal results of liver function studies; K76.0 Fatty (change of) liver, not elsewhere classified; E87.6 Hypokalemia; R82.90 Unspecified abnormal findings in urine; Z23 Encounter for immunization; Z79.1 Long term (current) use of non-steroidal anti-inflammatories (NSAID)

== ENCOUNTER → 2016-03-08 | Outpatient (CLI) | payer BC, OTHER ==
[~2016-03-08] MED LIST: ACT300 PO; CLB100 PO; DOCU-94 PO; HYDR-5688 PO; IBUP-103 PO; ONDA4TAB65 PO; POTA10CA28 PO; TRAM-453 PO
[2016-03-08 18:11] LABS: ALT/SGPT 662 U/L (12-78); AST/SGOT 193 U/L (15-37); BLOOD UREA NITROGEN 10 mg/dl (7-18); BUN/CREATININE RATIO 14.5 (10-20); CALCIUM 9.3 mg/dl (8.5-10.1); CARBON DIOXIDE 30 mmol/L (21-32); CHLORIDE 102 mmol/L (98-107); CREATININE 0.71 mg/dl (0.60-1.20); GLUCOSE 111 mg/dl (70-99); POTASSIUM 3.9 mmol/L (3.5-5.1); SODIUM 140 mmol/L (136-145)
[2016-03-08 18:13] LABS: ALB/GLOB RATIO 0.9 (0.9-2); ALKALINE PHOSPHATASE 184 U/L (45-117)
== END | disposition home or self-care (01) ==
LOC: C.LABBFT 16:42
PROVIDERS: ATTEND Internal Medicine
DX: K80.20 Calculus of gallbladder without cholecystitis without obstruction (principal)

== ENCOUNTER 2016-06-02 06:24 | Inpatient (IN) | payer BC, OTHER ==
[2016-05-20 08:10] VITALS: BMI 47.0
--- NOTE | 2016-05-20 08:52 | PAT Medication Instructions ---
Service Date May 20, 2016. Current Home Medication List No Active Prescriptions or Reported Meds Medication Instructions For Your Scheduled Surgery No Active Prescriptions or Reported Meds-- Please call PAT if starting any new medications prior to surgery. If you have any questions please call us at [phone] (Aleksandra Teixeira PA-C) or [phone] or [phone]
[2016-05-20 09:14] LABS: BASO % 0.6 %; BASO ABS # 0.02 K/uL (0-0.2); COMPLETE YES; EOS % 3.5 %; HEMATOCRIT 39.9 % (37-47); LYMPH % 29.7 %; LYMPH ABS # 1.01 K/uL (1.2-3.4); MEAN CELL VOLUME 91.5 fL (80-100); MEAN CORPUSCULAR HEMOGLOBIN 31.2 pg (25-34); MEAN CORPUSCULAR HGB CONC 34.1 g/dl (32-36); MEAN PLATELET VOLUME 9.6 fL (7.4-10.4); MONO % 9.4 %; NEUT % 56.8 %; PLATELET COUNT 171 K/uL (130-400); RED BLOOD COUNT 4.36 M/uL (4.2-5.4)
[2016-05-20 11:16] LABS: BUN/CREATININE RATIO 23.6 (10-20); CALCIUM 8.6 mg/dl (8.5-10.1); CREATININE 0.66 mg/dl (0.60-1.20); POTASSIUM 3.9 mmol/L (3.5-5.1)
[2016-05-20 11:18] LABS: ALB/GLOB RATIO 0.9 (0.9-2)
[2016-06-02] VITALS (7 sets, daily range): BP systolic 117–171; BP diastolic 65–83; PULSE 48–93; TEMP 36.4–36.8; O2SAT 90–100; Ht 157.5 cm; Wt 117.8 kg
[~2016-06-02] VITALS: Ht 157.5 cm; Wt 117.8 kg
[~2016-06-02 06:24] MED LIST changes: -ACT300 PO; +CEFAZOLIN 2000 MG/60 ML D5W IV SCH; -CLB100 PO; -DOCU-94 PO; +HEPARIN SOD 5000 UNIT/0.5 ML CARP SQ SCH; -HYDR-5688 PO; -IBUP-103 PO; +LACTATED RINGER'S 1000ML 1,000 ML IV SCH; -ONDA4TAB65 PO; -POTA10CA28 PO; -TRAM-453 PO
[2016-06-02] MEDS ORDERED: FLUMAZENIL 0.1 MG/1 ML 10 ML VIAL IV PRN (07:45)
[2016-06-02] MEDS ORDERED: PHENYLEPHRINE 100MCG/ML 5ML SYR IV PRN (07:45)
[2016-06-02] MEDS ORDERED: LABETALOL HCL IV 5 MG/ML 20ML IV PRN (07:45)
[2016-06-02] MEDS ORDERED: MEPERIDINE HCL 25 MG/ML CARP IV PRN (07:45)
[2016-06-02] MEDS ORDERED: ONDANSETRON INJ 2 MG/ML 2 ML VIAL IV PRN (07:45)
[2016-06-02] MEDS ORDERED: ATROPINE SULFATE 0.1 MG/ML 5ML SYR IV PRN (07:45)
[2016-06-02] MEDS ORDERED: NALOXONE HCL 0.4 MG/1 ML VIAL/CARP IV PRN ×2 (07:45→12:00)
[2016-06-02] MEDS ORDERED: EpHEDrine SULFATE INJ 50 MG/ML AMP IV PRN (07:45)
[2016-06-02] MEDS ORDERED: PHENYLEPHRINE HCL INJ 10 MG/ML VIAL ONE (07:50)
[2016-06-02] MEDS ORDERED: PROPOFOL IV EMULSION 10 MG/ML 20 ML VIAL IV ONE (07:50)
[2016-06-02] MEDS ORDERED: ROCURONIUM BROMIDE 10 MG/ML 5 ML VIAL ONE (07:50)
[2016-06-02] MEDS ORDERED: DEXAMETHASONE SOD INJ 4 MG/ML VIAL ONE (07:50)
[2016-06-02] MEDS ORDERED: SUCCINYLCHOLINE CHLORIDE 20 MG/ML 10 ML VIAL IV ONE (07:50)
[2016-06-02] MEDS ORDERED: ONDANSETRON INJ 2 MG/ML 2 ML VIAL ONE (07:50)
[2016-06-02] MEDS ORDERED: EpHEDrine SULFATE INJ 50 MG/ML AMP ONE (07:50)
[2016-06-02] MEDS ORDERED: GLYCOPYRROLATE INJ 0.2 MG/ML VIAL ONE (07:50)
[2016-06-02] MEDS ORDERED: LIDOCAINE HCL 2% 2 ML VIAL (20MG/ML) ONE (07:50)
[2016-06-02] MEDS ORDERED: NEOSTIGMINE METHYLSULFATE 5 MG/5 ML SYR ONE (07:50)
[2016-06-02] MEDS ORDERED: MIDAZOLAM HCL 1 MG/ML 2ML VIAL ONE (07:51)
[2016-06-02] MEDS ORDERED: FENTANYL CITRATE INJ 50 MCG/1 ML 2 ML VIAL ONE ×4 (07:51→11:55)
--- NOTE | 2016-06-02 08:29 | History & Physical Bridge Note ---
H&P Re-Evaluation Bridge Note: I have examined the patient, reviewed the History & Physical and in the interval since the performance of the History & Physical I have noted the following changes of clinical significance: No changes noted
[2016-06-02] MEDS ORDERED: BUPIVACAINE/EPINEPHRINE 0.5% MPF 1:200,000 30 ML VIAL ONE (08:48)
[2016-06-02] MEDS ORDERED: CONRAY 60% 50 ML VIAL ONE (10:31)
[2016-06-02] MEDS ORDERED: TISSEEL FIBRIN SEALANT 4ML TOP ONE (11:07)
--- NOTE | 2016-06-02 11:39 | DIAGNOSTIC IMAGING REPORT ---
INTRAOPERATIVE CHOLANGIOGRAM HISTORY: Post cholecystectomy. FLUOROSCOPY TIME: 11 seconds. 7 fluoroscopic spot images. FINDINGS: Fluoroscopy was provided for an intraoperative cholangiogram status post cholecystectomy. Contrast was injected through the cystic duct remnant. The common bile duct is normal in course and caliber. There are no filling defects seen within the common bile duct to suggest a retained stone. Contrast did not extend into the small bowel study. There is no intrahepatic bile duct dilatation. IMPRESSION: Fluoroscopy provided for an intraoperative cholangiogram status post cholecystectomy. No filling defects within the common bile duct. However, contrast did not extend into the small bowel during the study. Electronically signed by: Rakesh Marrero M.D. 06/02/2016 11:37 AM Dictated Date/Time: 06/02/2016 11:36 AM
--- NOTE | 2016-06-02 11:53 | [facility] Operative Report ---
Operative Report Operative Date Jun 02, 2016. 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 Oakley Jet Engine Mechanic Surgeon(s) Gale Anderson PA-C and Richard Lee PA-C Estimated Blood Loss 50ml Findings very hard/contracted gallbladder with firm attachment to surroundings; ? fistula to CBD. Specimens A: gallbladder Anesthesia get Complication(s) None Disposition Recovery Room / PACU I attest to the content of the Intraoperative Record and any orders documented therein. Any exceptions are noted below.
[2016-06-02] MEDS ORDERED: SODIUM CHLORIDE 0.9% 1000ML 1,000 ML IV SCH (11:54)
[2016-06-02] MEDS: FENTANYL CITRATE INJ 50 MCG/1 ML 2 ML VIAL IV PRN ×4 (12:12→12:27)
[2016-06-02] MEDS: HYDROmorphone INJ 0.5 MG/0.5 ML SYR IV PRN ×6 (12:27→13:39)
[2016-06-02] MEDS ORDERED: PROMETHAZINE HCL INJ 25 MG in SODIUM CHLORIDE 0.9% 50ML 50 ML IV ONE (13:00)
[2016-06-02] MEDS ORDERED: KETOROLAC TROMETHAMINE 30 MG/ML VIAL ONE (13:12)
[2016-06-02] MEDS ORDERED: NURSING VERBAL MED ORDER ONE ×2 (13:15→21:30)
[2016-06-02] MEDS ORDERED: ONDANSETRON INJ 2 MG/ML 2 ML VIAL IV STA (13:39)
[2016-06-02] MEDS: ONDANSETRON INJ 2 MG/ML 2 ML VIAL IV PRN ×2 (13:42→19:22)
--- NOTE | 2016-06-02 14:12 | Anesthesiology Progress Note ---
Anesthesia Post Op Note Date & Time Jun 02, 2016 at 14:10 Vital Signs Pain Intensity: 4 Vital Signs Past 12 Hours Date Time Temp Pulse Resp B/P Pulse Ox O2 Delivery O2 Flow Rate FiO2 06/02/16 13:31 49 14 06/02/16 13:31 49 14 100 06/02/16 13:30 134/69 06/02/16 13:26 62 15 100 06/02/16 13:26 61 15 06/02/16 13:25 146/80 06/02/16 13:21 58 11 06/02/16 13:21 59 11 99 06/02/16 13:20 140/71 06/02/16 13:16 55 15 06/02/16 13:16 55 15 99 06/02/16 13:15 140/72 06/02/16 13:11 67 16 100 06/02/16 13:11 67 16 06/02/16 13:10 131/70 06/02/16 13:06 58 12 99 06/02/16 13:06 56 12 06/02/16 13:05 129/69 06/02/16 13:01 61 14 98 06/02/16 13:01 63 14 06/02/16 13:00 139/70 06/02/16 12:56 61 16 06/02/16 12:56 60 16 98 06/02/16 12:55 132/64 06/02/16 12:51 63 14 06/02/16 12:51 64 14 97 06/02/16 12:50 130/72 06/02/16 12:46 61 16 98 06/02/16 12:46 60 16 06/02/16 12:45 134/74 06/02/16 12:41 66 17 06/02/16 12:41 66 17 97 06/02/16 12:40 149/73 06/02/16 12:36 61 13 06/02/16 12:36 61 13 99 06/02/16 12:35 137/71 06/02/16 12:31 64 17 98 06/02/16 12:31 64 17 06/02/16 12:30 143/68 06/02/16 12:26 69 17 06/02/16 12:26 70 17 98 06/02/16 12:25 143/73 06/02/16 12:22 66 20 99 06/02/16 12:22 67 20 06/02/16 12:20 141/70 06/02/16 12:17 64 16 06/02/16 12:17 65 16 98 06/02/16 12:16 65 21 06/02/16 12:16 65 21 98 06/02/16 12:15 140/75 06/02/16 12:11 67 18 06/02/16 12:11 63 18 97 06/02/16 12:10 150/73 06/02/16 12:06 63 13 06/02/16 12:06 62 13 99 06/02/16 12:05 145/76 06/02/16 12:01 68 17 06/02/16 12:01 68 17 98 06/02/16 12:00 124/86 06/02/16 11:56 67 14 06/02/16 11:56 67 14 95 06/02/16 11:55 149/68 06/02/16 11:51 36.2 71 16 152/81 98 Mask 10 06/02/16 11:51 71 152/81 98 06/02/16 11:51 71 06/02/16 06:53 36.8 93 20 171/83 97 Room Air Notes Mental Status: alert / awake / arousable, participated in evaluation Pt Amnestic to Procedure: Yes Nausea / Vomiting: adequately controlled, improving with treatment Pain: adequately controlled, improving with treatment Airway Patency, RR, SpO2: stable & adequate BP & HR: stable & adequate Hydration State: stable & adequate Anesthetic Complications: no major complications apparent The patient had to be converted to an open procedure by Dr. Oakley. She has some pain and nausea in the PACU but is now feeling better with an IV SAL[employer] MARKETING INTERN as well as Phenergan and Zofran.
[2016-06-02] MEDS: HYDROmorphone HCL 0.5MG/ML 50 ML CASSETTE IV PRN ×3 (14:43→23:06)
[2016-06-02] MEDS: LACTATED RINGER'S 1000ML 1,000 ML IV SCH ×2 (15:49→21:22)
[2016-06-02] MEDS: CEFAZOLIN IV 2,000 MG in DEXTROSE 5% 50ML 50 ML IV SCH ×2 (15:49→23:50)
--- NOTE | 2016-06-02 16:11 | OPERATIVE REPORT ---
DATE OF OPERATION: 06/02/2016 PREOPERATIVE DIAGNOSIS: Symptomatic cholelithiasis and history of elevated liver function test. POSTOPERATIVE DIAGNOSIS: Same with severely contracted gallbladder with scarring. PROCEDURE PERFORMED: Laparoscopy with conversion to laparotomy, open cholecystectomy with intraoperative cholangiogram. SURGEON: Dr. Oakley. AREA FIELD MANAGER: Zak Lee PA-C and Gale Anderson PA-C. ESTIMATED BLOOD LOSS: Approximately 100 mL. COMPLICATIONS: No immediate. ANESTHESIA: General. The patient tolerated the procedure well. OPERATIVE NOTE: After informed consent was obtained, the patient was taken to the operating suite, placed in supine position. After successful intubation, the abdomen was sterilely prepped and draped in usual fashion. A periumbilical incision was made with 11 blade scalpel and carried down through the soft tissue using electrocautery. The anterior rectus fascia was opened using electrocautery and two #0 Vicryl stay sutures were placed. Peritoneum was entered using blunt finger penetration. A finger sweep was performed. A 12 mm Nava trocar was placed and the abdomen was insufflated 18 mmHg. Laparoscope was inserted and the abdomen examined 360 degrees. A subxiphoid 5 mm port and 2 right upper quadrant 5 mm ports were placed under direct vision. The patient was placed in reverse Trendelenburg position and slightly airplaned to the left. The gallbladder itself was very hard and contracted and intrahepatic. We had trouble grasping it but eventually we were able to grasp it and elevate it superiorly and the neck of it laterally. There were some adhesions around the neck of the gallbladder that I took down using electrocautery. I then tried to skeletonize structures. The anatomy was markedly abnormal and I was unable to find any tissue planes whatsoever. Again, the gallbladder was very hard and contracted and almost calcified. I was unable to delineate the cystic duct or the cystic artery. I tried for quite some time and realized it was going to be unsafe to proceed any further. We therefore removed all the trocars and desufflated the abdomen and converted to laparotomy. I made a right subcostal incision with a 10 blade scalpel and carried it down through the soft tissue as well as the abdominal musculature using electrocautery. Once in the abdomen, we then used a Bookwalter retractor to help expose the gallbladder. I began using electrocautery with a dome down technique. We got down towards the neck of the gallbladder and even with open fashion with manual palpation, etc. it was really impossible to delineate the patient's anatomy or to dissect any of the tissue planes safely. We made a small opening in the neck of the gallbladder and advanced a cholangiogram catheter and blew up the balloon. We used 50:50 omnipaque and performed an on-table cholangiogram. We were able to verify very abnormal and short cystic duct, relatively normal appearing common bile duct and intrahepatic ducts without evidence of obstruction. Because of this and because of the thickened nature of the gallbladder, the abnormal anatomy, etc. I decided to amputate the gallbladder at its neck. We used electrocautery to completely divide it at its neck just proximal to the cystic duct which was nondistinct. Once we did this, we passed it off to be sent to pathology. It was very thick walled with a very small lumen, a lot of debris and calculi within it. I then closed off basically the cystic duct stump using 2-0 silk in a running fashion. We did a 2 layer closure and then covered the stump with Tisseel sealant. There was no evidence of any bile leak or bleeding at the end of the case. I thoroughly irrigated the right upper quadrant and suctioned it out. We did place 10 flat Terence-Dexter drain in the right upper quadrant and brought out through one of the port sites and secured using 2-0 silk. We then closed the fascia in a single layer using #1 PDS starting at either pole and running them and securing them in the midline. We irrigated soft tissue and closed it using 3-0 Vicryl and then 3-0 Monocryl in a running fashion. The fascia from the camera port site was closed using 0 Vicryl in [id number] fashion. The skin was closed using 4-0 Monocryl. Sterile dressings were applied. The patient was awakened, extubated, and transferred to recovery in stable condition. I attest to the content of the Intraoperative Record and any orders documented therein. Any exceptio ns are noted below.
[2016-06-02] MEDS ORDERED: PROMETHAZINE HCL INJ 25 MG in SODIUM CHLORIDE 0.9% 50ML 50 ML IV PRN (21:30)
[2016-06-03] VITALS (7 sets, daily range): BP systolic 114–134; BP diastolic 67–74; PULSE 54–87; TEMP 36.4–37.3; O2SAT 93–98
[2016-06-03] MEDS: LACTATED RINGER'S 1000ML 1,000 ML IV SCH ×2 (06:41→17:53)
[2016-06-03] MEDS: HYDROmorphone HCL 0.5MG/ML 50 ML CASSETTE IV PRN (06:54)
[2016-06-03 07:17] LABS: BASO % 0.2 %; BASO ABS # 0.01 K/uL (0-0.2); COMPLETE YES; HEMATOCRIT 36.1 % (37-47); LYMPH % 14.3 %; LYMPH ABS # 0.88 K/uL (1.2-3.4); MEAN CELL VOLUME 91.4 fL (80-100); MEAN CORPUSCULAR HEMOGLOBIN 31.1 pg (25-34); MEAN CORPUSCULAR HGB CONC 34.1 g/dl (32-36); MEAN PLATELET VOLUME 9.6 fL (7.4-10.4); NEUT % 72.5 %; PLATELET COUNT 172 K/uL (130-400); RED BLOOD COUNT 3.95 M/uL (4.2-5.4); WHITE BLOOD COUNT 6.17 K/uL (4.8-10.8)
[2016-06-03 07:37] LABS: PROTHROMBIN TIME (PATIENT) 10.6 SECONDS (9.0-12.0)
[2016-06-03 07:51] LABS: ALB/GLOB RATIO 0.9 (0.9-2); BUN/CREATININE RATIO 18.2 (10-20); CALCIUM 8.4 mg/dl (8.5-10.1); CREATININE 0.72 mg/dl (0.60-1.20); POTASSIUM 4.4 mmol/L (3.5-5.1)
[2016-06-03] MEDS: CEFAZOLIN IV 2,000 MG in DEXTROSE 5% 50ML 50 ML IV SCH (08:09)
--- NOTE | 2016-06-03 08:28 | Anesthesiology Progress Note ---
Anesthesia Post Op Note Date & Time Jun 03, 2016 at 08:26 Vital Signs Pain Intensity: 5.0 Vital Signs Past 12 Hours Date Time Temp Pulse Resp B/P Pulse Ox O2 Delivery O2 Flow Rate FiO2 06/03/16 07:25 37.2 54 15 132/67 98 Nasal Cannula 2.0 06/03/16 03:30 36.4 86 16 114/72 98 Nasal Cannula 2.0 06/02/16 23:50 Nasal Cannula 2.0 06/02/16 23:40 36.4 48 14 117/74 100 Nasal Cannula 2.0 Notes Mental Status: alert / awake / arousable, participated in evaluation
--- NOTE | 2016-06-03 08:39 | Discharge Instructions ---
Discharge Instructions Date of Service Jun 03, 2016. Admission Reason for Admission: Cholelithiasis Discharge Discharge Diagnosis / Problem: cholelithiasis Discharge Goals Goal(s): Decrease discomfort, Improve function Activity Recommendations Activity Limitations: as noted below Lifting Limitations: no more than 10 pounds Exercise/Sports Limitations: until after follow-up appointment May Resume Sexual Activity: after follow-up appointment Shower/Bathe: tomorrow . Instructions / Follow-Up Instructions / Follow-Up call [phone] if any problems/questions. f/u Dr. Oakley in 1-2 weeks. Current Hospital Diet Patient's current hospital diet: Clear Liquid Diet Discharge Diet Recommended Diet: Regular Diet Procedures Procedures Performed: Laparoscopy, conversion to open cholecystectomy with intraoperative cholangiogram Pending Studies Studies pending at discharge: yes List of pending studies: path report Medical Emergencies . Who to Call and When: Medical Emergencies: If at any time you feel your situation is an emergency, please call 911 immediately. . Non-Emergent Contact Non-Emergency issues call your: Primary Care Provider, Surgeon Call Non-Emergent contact if: temperature is above 101, wound has increased drainage, wound has increased redness, wound has increased pain . "Provider Documentation" section prepared by Eric Oakley. VTE Core Measure Inpt VTE Proph given/why not?: SCD's
[2016-06-03] MEDS ORDERED: HYDR-5688 PO (08:41)
--- NOTE | 2016-06-03 08:45 | Surgery Progress Note ---
Surgery Progress Note Date of Service Jun 03, 2016. Subjective Post OP Day: 1 + feeling well doing better than expected.pain controlled. tolerating liquids. Objective Vital Signs: Date Time Temp Pulse Resp B/P Pulse Ox O2 Delivery O2 Flow Rate FiO2 06/03/16 07:25 37.2 54 15 132/67 98 Nasal Cannula 2.0 06/03/16 03:30 36.4 86 16 114/72 98 Nasal Cannula 2.0 06/02/16 23:50 Nasal Cannula 2.0 06/02/16 23:40 36.4 48 14 117/74 100 Nasal Cannula 2.0 06/02/16 19:05 36.6 85 16 132/72 90 2.0 06/02/16 17:40 36.6 56 16 123/75 98 2.0 06/02/16 16:46 84 16 130/79 97 2.0 06/02/16 15:42 97 Nasal Cannula 2.0 06/02/16 15:42 36.6 57 16 129/73 97 Nasal Cannula 2.0 06/02/16 15:18 36.6 56 17 147/65 98 Nasal Cannula 2.0 06/02/16 14:45 Nasal Cannula 2.0 06/02/16 14:45 Partial Rebreather 06/02/16 14:17 36.4 61 16 151/74 100 Mask 10 06/02/16 14:12 49 16 06/02/16 14:12 49 16 100 06/02/16 14:10 139/74 06/02/16 14:07 64 24 06/02/16 14:07 66 24 98 06/02/16 14:05 142/62 06/02/16 14:02 54 13 100 06/02/16 14:02 53 13 06/02/16 14:00 152/79 06/02/16 13:57 54 10 100 06/02/16 13:57 54 10 06/02/16 13:55 146/70 06/02/16 13:52 60 18 99 06/02/16 13:52 60 18 06/02/16 13:50 145/66 06/02/16 13:47 52 13 100 06/02/16 13:47 54 13 06/02/16 13:45 143/68 06/02/16 13:42 55 11 06/02/16 13:42 57 11 100 06/02/16 13:40 150/78 06/02/16 13:37 54 14 100 06/02/16 13:37 54 14 06/02/16 13:36 137/66 06/02/16 13:32 51 14 06/02/16 13:32 52 14 100 06/02/16 13:31 49 14 06/02/16 13:31 49 14 100 06/02/16 13:30 134/69 06/02/16 13:26 62 15 100 06/02/16 13:26 61 15 06/02/16 13:25 146/80 06/02/16 13:21 58 11 06/02/16 13:21 59 11 99 06/02/16 13:20 140/71 06/02/16 13:16 55 15 06/02/16 13:16 55 15 99 06/02/16 13:15 140/72 06/02/16 13:11 67 16 100 06/02/16 13:11 67 16 06/02/16 13:10 131/70 06/02/16 13:06 58 12 99 06/02/16 13:06 56 12 06/02/16 13:05 129/69 06/02/16 13:01 61 14 98 06/02/16 13:01 63 14 06/02/16 13:00 139/70 06/02/16 12:56 61 16 06/02/16 12:56 60 16 98 06/02/16 12:55 132/64 06/02/16 12:51 63 14 06/02/16 12:51 64 14 97 06/02/16 12:50 130/72 06/02/16 12:46 61 16 98 06/02/16 12:46 60 16 06/02/16 12:45 134/74 06/02/16 12:41 66 17 06/02/16 12:41 66 17 97 06/02/16 12:40 149/73 06/02/16 12:36 61 13 06/02/16 12:36 61 13 99 06/02/16 12:35 137/71 06/02/16 12:31 64 17 98 06/02/16 12:31 64 17 06/02/16 12:30 143/68 17 12:26 69 17 06/02/16 12:26 70 17 98 06/02/16 12:25 143/73 06/02/16 12:22 66 20 99 06/02/16 12:22 67 20 06/02/16 12:20 141/70 06/02/16 12:17 64 16 06/02/16 12:17 65 16 98 06/02/16 12:16 65 21 06/02/16 12:16 65 21 98 06/02/16 12:15 140/75 06/02/16 12:11 67 18 06/02/16 12:11 63 18 97 06/02/16 12:10 150/73 06/02/16 12:06 63 13 06/02/16 12:06 62 13 99 06/02/16 12:05 145/76 06/02/16 12:01 68 17 06/02/16 12:01 68 17 98 06/02/16 12:00 124/86 06/02/16 11:56 67 14 06/02/16 11:56 67 14 95 06/02/16 11:55 149/68 06/02/16 11:51 36.2 71 16 152/81 98 Mask 10 06/02/16 11:51 71 152/81 98 06/02/16 11:51 71 Physical Exam: SCOTT drainage (serous) General Appearance: no apparent distress Abdomen: soft, + pertinent finding (expected tenderness) Incision(s): clean, dry, intact Laboratory Results: Results Past 24 Hours Test 06/03/16 07:00 Range/Units White Blood Count 6.17 4.8-10.8 K/uL Red Blood Count 3.95 4.2-5.4 M/uL Hemoglobin 12.3 12.0-16.0 g/dL Hematocrit 36.1 37-47 % Mean Corpuscular Volume 91.4 80-100 fL Mean Corpuscular Hemoglobin 31.1 25-34 pg Mean Corpuscular Hemoglobin Concent 34.1 32-36 g/dl Platelet Count 172 130-400 K/uL Mean Platelet Volume 9.6 7.4-10.4 fL Neutrophils (%) (Auto) 72.5 % Lymphocytes (%) (Auto) 14.3 % Monocytes (%) (Auto) 13.0 % Eosinophils (%) (Auto) 0.0 % Basophils (%) (Auto) 0.2 % Neutrophils # (Auto) 4.48 1.4-6.5 K/uL Lymphocytes # (Auto) 0.88 1.2-3.4 K/uL Monocytes # (Auto) 0.80 0.11-0.59 K/uL Eosinophils # (Auto) 0.00 0-0.5 K/uL Basophils # (Auto) 0.01 0-0.2 K/uL RDW Standard Deviation 45.6 36.4-46.3 fL RDW Coefficient of Variation 13.7 11.5-14.5 % Immature Granulocyte % (Auto) 0.0 % Immature Granulocyte # (Auto) 0.00 0.00-0.02 K/uL Prothrombin Time 10.6 9.0-12.0 SECONDS Prothromb Time International Ratio 1.0 0.9-1.1 Sodium Level 139 136-145 mmol/L Potassium Level 4.4 3.5-5.1 mmol/L Chloride Level 103 98-107 mmol/L Carbon Dioxide Level 33 21-32 mmol/L Anion Gap 3.0 3-11 mmol/L Blood Urea Nitrogen 13 7-18 mg/dl Creatinine 0.72 0.60-1.20 mg/dl Est Creatinine Clear Calc Drug Dose 101.3 ml/min Estimated GFR () 105.5 Estimated GFR (Non- 91.0 BUN/Creatinine Ratio 18.2 10-20 Random Glucose 102 70-99 mg/dl Calcium Level 8.4 8.5-10.1 mg/dl Total Bilirubin 1.3 0.2-1 mg/dl Aspartate Amino Transf (AST/SGOT) 71 15-37 U/L Alanine Aminotransferase (ALT/SGPT) 80 12-78 U/L Alkaline Phosphatase 130 45-117 U/L Total Protein 6.4 6.4-8.2 gm/dl Albumin 3.1 3.4-5.0 gm/dl Globulin 3.3 2.5-4.0 gm/dl Albumin/Globulin Ratio 0.9 0.9-2 Assessment & Plan 06/03/16 POD #1 from open katharine doing well change to po pain meds increase activity slowly advance diet. possible d/c tomorrow.
[2016-06-03] MEDS: ENOXAPARIN 40 MG/0.4 ML SYR SQ SCH (11:01)
[2016-06-03] MEDS: HYDROCODONE/ACETAMOPHEN 5/325MG TAB PO PRN ×3 (13:39→23:23)
[2016-06-04] MEDS: HYDROCODONE/ACETAMOPHEN 5/325MG TAB PO PRN ×5 (03:20→21:33)
[2016-06-04] MEDS: LACTATED RINGER'S 1000ML 1,000 ML IV SCH (03:21)
--- NOTE | 2016-06-04 06:28 | Surgery Progress Note ---
Surgery Progress Note Date of Service Jun 04, 2016. Subjective Post OP Day: 2 tolerating some food, a little worn out Objective Vital Signs: Date Time Temp Pulse Resp B/P Pulse Ox O2 Delivery O2 Flow Rate FiO2 06/03/16 23:20 Room Air 06/03/16 23:13 37.3 80 14 130/70 93 Room Air 06/03/16 15:11 94 Room Air 06/03/16 14:55 36.8 87 17 131/74 94 Room Air 06/03/16 12:05 36.5 65 16 134/69 98 Room Air 06/03/16 08:00 94 Room Air 06/03/16 07:25 37.2 54 15 132/67 98 Nasal Cannula 2.0 General Appearance: no apparent distress Respiratory/Chest: no respiratory distress Abdomen: soft Incision(s): intact Laboratory Results: Results Past 24 Hours Test 06/03/16 07:00 Range/Units White Blood Count 6.17 4.8-10.8 K/uL Red Blood Count 3.95 4.2-5.4 M/uL Hemoglobin 12.3 12.0-16.0 g/dL Hematocrit 36.1 37-47 % Mean Corpuscular Volume 91.4 80-100 fL Mean Corpuscular Hemoglobin 31.1 25-34 pg Mean Corpuscular Hemoglobin Concent 34.1 32-36 g/dl Platelet Count 172 130-400 K/uL Mean Platelet Volume 9.6 7.4-10.4 fL Neutrophils (%) (Auto) 72.5 % Lymphocytes (%) (Auto) 14.3 % Monocytes (%) (Auto) 13.0 % Eosinophils (%) (Auto) 0.0 % Basophils (%) (Auto) 0.2 % Neutrophils # (Auto) 4.48 1.4-6.5 K/uL Lymphocytes # (Auto) 0.88 1.2-3.4 K/uL Monocytes # (Auto) 0.80 0.11-0.59 K/uL Eosinophils # (Auto) 0.00 0-0.5 K/uL Basophils # (Auto) 0.01 0-0.2 K/uL RDW Standard Deviation 45.6 36.4-46.3 fL RDW Coefficient of Variation 13.7 11.5-14.5 % Immature Granulocyte % (Auto) 0.0 % Immature Granulocyte # (Auto) 0.00 0.00-0.02 K/uL Prothrombin Time 10.6 9.0-12.0 SECONDS Prothromb Time International Ratio 1.0 0.9-1.1 Sodium Level 139 136-145 mmol/L Potassium Level 4.4 3.5-5.1 mmol/L Chloride Level 103 98-107 mmol/L Carbon Dioxide Level 33 21-32 mmol/L Anion Gap 3.0 3-11 mmol/L Blood Urea Nitrogen 13 7-18 mg/dl Creatinine 0.72 0.60-1.20 mg/dl Est Creatinine Clear Calc Drug Dose 101.3 ml/min Estimated GFR () 105.5 Estimated GFR (Non- 91.0 BUN/Creatinine Ratio 18.2 10-20 Random Glucose 102 70-99 mg/dl Calcium Level 8.4 8.5-10.1 mg/dl Total Bilirubin 1.3 0.2-1 mg/dl Aspartate Amino Transf (AST/SGOT) 71 15-37 U/L Alanine Aminotransferase (ALT/SGPT) 80 12-78 U/L Alkaline Phosphatase 130 45-117 U/L Total Protein 6.4 6.4-8.2 gm/dl Albumin 3.1 3.4-5.0 gm/dl Globulin 3.3 2.5-4.0 gm/dl Albumin/Globulin Ratio 0.9 0.9-2 Assessment & Plan 06/04/16- will keep in hospital today- likely d/c tomorrow decrease IV fluids- overall good progress
[2016-06-04 07:06] VITALS: BP 138/83; PULSE 65; TEMP 36.4; O2SAT 94
[2016-06-04] MEDS: ENOXAPARIN 40 MG/0.4 ML SYR SQ SCH (09:02)
[2016-06-04 15:25] VITALS: BP 113/72; PULSE 78; TEMP 36.6; O2SAT 95
[2016-06-04 22:46] VITALS: BP 153/76; PULSE 86; TEMP 37; O2SAT 92
[2016-06-05] MEDS: HYDROCODONE/ACETAMOPHEN 5/325MG TAB PO PRN ×4 (03:12→22:25)
[2016-06-05 06:21] LABS: HEMATOCRIT 34.1 % (37-47); MEAN CELL VOLUME 89.5 fL (80-100); MEAN CORPUSCULAR HEMOGLOBIN 30.7 pg (25-34); MEAN CORPUSCULAR HGB CONC 34.3 g/dl (32-36); MEAN PLATELET VOLUME 9.5 fL (7.4-10.4); PLATELET COUNT 148 K/uL (130-400); RED BLOOD COUNT 3.81 M/uL (4.2-5.4); WHITE BLOOD COUNT 4.22 K/uL (4.8-10.8)
--- NOTE | 2016-06-05 06:36 | Surgery Progress Note ---
Surgery Progress Note Date of Service Jun 05, 2016. Subjective No nausea, No vomiting awake, alert. "really rough night", tried to decrease pain med, doesn't want to go home. She is stable- tolerating po, no acute changes Objective Vital Signs: Date Time Temp Pulse Resp B/P Pulse Ox O2 Delivery O2 Flow Rate FiO2 06/04/16 22:46 37.0 86 16 153/76 92 Room Air 06/04/16 19:20 Room Air 06/04/16 15:25 36.6 78 16 113/72 95 Room Air 06/04/16 08:05 Room Air 06/04/16 07:06 36.4 65 18 138/83 94 Room Air General Appearance: no apparent distress Respiratory/Chest: no respiratory distress Abdomen: normal bowel sounds, soft Incision(s): intact (looks very good) Laboratory Results: Results Past 24 Hours Test 06/05/16 05:48 Range/Units White Blood Count 4.22 4.8-10.8 K/uL Red Blood Count 3.81 4.2-5.4 M/uL Hemoglobin 11.7 12.0-16.0 g/dL Hematocrit 34.1 37-47 % Mean Corpuscular Volume 89.5 80-100 fL Mean Corpuscular Hemoglobin 30.7 25-34 pg Mean Corpuscular Hemoglobin Concent 34.3 32-36 g/dl RDW Standard Deviation 43.9 36.4-46.3 fL RDW Coefficient of Variation 13.4 11.5-14.5 % Platelet Count 148 130-400 K/uL Mean Platelet Volume 9.5 7.4-10.4 fL Assessment & Plan 06/05/16- Cont supportive care today, probable d/c tomorrow overall she is doing well, see how oral meds work today, may need Percocet 06/04/16- will keep in hospital today- likely d/c tomorrow decrease IV fluids- overall good progress 06/04/16- will keep in hospital today- likely d/c tomorrow decrease IV fluids- overall good progress
[2016-06-05 06:44] LABS: CREATININE 0.5 mg/dl (0.60-1.20)
[2016-06-05 07:08] VITALS: BP 158/82; PULSE 71; TEMP 36.6; O2SAT 96
[2016-06-05] MEDS: ENOXAPARIN 40 MG/0.4 ML SYR SQ SCH (09:15)
[2016-06-05 15:16] VITALS: BP 164/78; PULSE 76; TEMP 36.9; O2SAT 96
[2016-06-05 15:21] VITALS: BP 146/80
[2016-06-05 23:05] VITALS: BP 121/73; PULSE 86; TEMP 36.7; O2SAT 95
[2016-06-06] MEDS ORDERED: BISACODYL 10 MG SUPP PR STA (07:12)
[2016-06-06 07:18] VITALS: BP 134/83; PULSE 119; TEMP 36.9; O2SAT 94
[2016-06-06 08:43] VITALS: PULSE 78
--- NOTE | 2016-06-06 08:46 | Surgery Progress Note ---
Surgery Progress Note Date of Service Jun 06, 2016. Subjective Post OP Day: 4 had another "rough night"...had some dry heaves and feels constipated/no bm. pain is now under reasonable control but she would like to try a non-narcotic pain med. slowly improving. ambulating ok and tolerating diet. Objective Vital Signs: Date Time Temp Pulse Resp B/P Pulse Ox O2 Delivery O2 Flow Rate FiO2 06/06/16 08:43 78 06/06/16 07:58 Room Air 06/06/16 07:18 36.9 119 20 134/83 94 Room Air 06/05/16 23:05 36.7 86 16 121/73 95 Room Air 06/05/16 22:50 Room Air 06/05/16 15:21 146/80 06/05/16 15:20 Room Air 06/05/16 15:16 36.9 76 18 164/78 96 Room Air General Appearance: no apparent distress Head: normocephalic Respiratory/Chest: no respiratory distress, no accessory muscle use Abdomen: non distended, soft Incision(s): clean, dry, intact Laboratory Results: Results Past 24 Hours Test 06/06/16 05:59 Range/Units Total Bilirubin 1.2 0.2-1 mg/dl Direct Bilirubin 0.3 0-0.2 mg/dl Aspartate Amino Transf (AST/SGOT) 41 15-37 U/L Alanine Aminotransferase (ALT/SGPT) 47 12-78 U/L Alkaline Phosphatase 127 45-117 U/L Total Protein 6.7 6.4-8.2 gm/dl Albumin 3.0 3.4-5.0 gm/dl Assessment & Plan 06/06/2016 slowly improving will add ibuprofen, celebrex prn, and ultram ducolax suppository will re-eval after lunch for possible discharge 06/03/16 POD #1 from open katharine doing well change to po pain meds increase activity slowly advance diet. possible d/c tomorrow. 06/03/16 POD #1 from open katharine doing well change to po pain meds increase activity slowly advance diet. possible d/c tomorrow.
[2016-06-06] MEDS ORDERED: IBUPROFEN 600 MG TAB PO SCH (09:00)
[2016-06-06] MEDS: CeleBREX 100 MG CAP PO SCH ×2 (10:15→20:02)
[2016-06-06] MEDS: ENOXAPARIN 40 MG/0.4 ML SYR SQ SCH (10:16)
[2016-06-06] MEDS ORDERED: ONDA4TAB65 PO (10:25)
[2016-06-06] MEDS ORDERED: CLB100 PO (10:25)
[2016-06-06] MEDS ORDERED: TRAM-453 PO (10:25)
[2016-06-06] MEDS ORDERED: BISACODYL 10 MG SUPP ONE (10:29)
[2016-06-06] MEDS: TRAMADOL HCL 50 MG TAB PO PRN ×2 (10:34→18:21)
[2016-06-06] MEDS ORDERED: MAGNESIUM HYDROXIDE SUSP 30 ML UDC PO ONE (13:15)
[2016-06-06 15:09] VITALS: BP 123/77; PULSE 85; TEMP 36.9; O2SAT 93
[2016-06-06] MEDS: ONDANSETRON INJ 2 MG/ML 2 ML VIAL IV PRN (20:01)
[2016-06-06] MEDS ORDERED: NURSING VERBAL MED ORDER ONE (20:30)
[2016-06-06] MEDS ORDERED: SOD PHOSPHATE/SOD BIPHOSPHATE ENEMA 132 ML BTL ONE (20:38)
[2016-06-06] MEDS: HYDROCODONE/ACETAMOPHEN 5/325MG TAB PO PRN (22:17)
[2016-06-06 22:50] VITALS: BP 146/81; PULSE 84; TEMP 36.3; O2SAT 93
[2016-06-07] MEDS: TRAMADOL HCL 50 MG TAB PO PRN (03:34)
[2016-06-07] MEDS: HYDROCODONE/ACETAMOPHEN 5/325MG TAB PO PRN (05:39)
[2016-06-07 07:16] VITALS: BP 122/70; PULSE 67; TEMP 36.7; O2SAT 91
--- NOTE | 2016-06-07 07:41 | Surgery Progress Note ---
Surgery Progress Note Date of Service Jun 07, 2016. Subjective Post OP Day: 5 + bowel movement, + pain controlled ([place]), No nausea Objective Vital Signs: Date Time Temp Pulse Resp B/P Pulse Ox O2 Delivery O2 Flow Rate FiO2 06/07/16 07:16 36.7 67 19 122/70 91 Room Air 06/06/16 23:35 Room Air 06/06/16 22:50 36.3 84 16 146/81 93 Room Air 06/06/16 15:30 Room Air 06/06/16 15:09 36.9 85 18 123/77 93 Room Air 06/06/16 08:43 78 06/06/16 07:58 Room Air Abdomen: non distended, soft Incision(s): clean, dry Assessment & Plan s/p open katharine improved after BM continue bowel regimen recheck later today
[2016-06-07] MEDS ORDERED: DOCU-94 PO (07:43)
[2016-06-07] MEDS ORDERED: MAGNESIUM HYDROXIDE SUSP 30 ML UDC PO ONE (07:45)
[2016-06-07] MEDS: ACETAMINOPHEN IV 650 MG in EMPTY BAG 0 ML IV PRN ×3 (09:06→21:57)
[2016-06-07] MEDS: DOCUSATE SODIUM 100 MG CAP PO SCH ×3 (09:06→21:21)
[2016-06-07] MEDS: ENOXAPARIN 40 MG/0.4 ML SYR SQ SCH (09:07)
[2016-06-07] MEDS: CeleBREX 100 MG CAP PO SCH ×2 (09:07→20:08)
[2016-06-07 15:29] VITALS: BP 119/78; PULSE 90; TEMP 36.5; O2SAT 96
[2016-06-07 15:30] VITALS: O2SAT 96
[2016-06-07 23:09] VITALS: BP 108/73; PULSE 87; TEMP 36.8; O2SAT 95
[2016-06-08] MEDS: TRAMADOL HCL 50 MG TAB PO PRN (04:57)
[2016-06-08 06:16] LABS: HEMATOCRIT 34.9 % (37-47); MEAN CELL VOLUME 92.3 fL (80-100); MEAN CORPUSCULAR HEMOGLOBIN 30.4 pg (25-34); MEAN PLATELET VOLUME 9.5 fL (7.4-10.4); PLATELET COUNT 181 K/uL (130-400); RED BLOOD COUNT 3.78 M/uL (4.2-5.4); WHITE BLOOD COUNT 5.34 K/uL (4.8-10.8)
[2016-06-08 06:51] LABS: CREATININE 0.51 mg/dl (0.60-1.20)
--- NOTE | 2016-06-08 08:55 | Surgery Progress Note ---
Surgery Progress Note Date of Service Jun 08, 2016. Subjective Post OP Day: 6 + feeling well In to see patient- Reports that she is continuing to improve. Pain is controlled- mild discomfort with movement. Patient reports bowels are moving. Appetite is good. Would like to go home today. Objective Vital Signs: Date Time Temp Pulse Resp B/P Pulse Ox O2 Delivery O2 Flow Rate FiO2 06/07/16 23:45 Room Air 06/07/16 23:09 36.8 87 16 108/73 95 Room Air 06/07/16 15:30 96 Room Air 2.0 06/07/16 15:29 36.5 90 17 119/78 96 Room Air General Appearance: WD/WN, no apparent distress Head: normocephalic, atraumatic Abdomen: non tender Incision(s): clean, dry, intact, no drainage Laboratory Results: Results Past 24 Hours Test 06/08/16 05:35 Range/Units White Blood Count 5.34 4.8-10.8 K/uL Red Blood Count 3.78 4.2-5.4 M/uL Hemoglobin 11.5 12.0-16.0 g/dL Hematocrit 34.9 37-47 % Mean Corpuscular Volume 92.3 80-100 fL Mean Corpuscular Hemoglobin 30.4 25-34 pg Mean Corpuscular Hemoglobin Concent 33.0 32-36 g/dl RDW Standard Deviation 46.0 36.4-46.3 fL RDW Coefficient of Variation 13.7 11.5-14.5 % Platelet Count 181 130-400 K/uL Mean Platelet Volume 9.5 7.4-10.4 fL Creatinine 0.51 0.60-1.20 mg/dl Est Creatinine Clear Calc Drug Dose 142.9 ml/min Estimated GFR () 121.1 Estimated GFR (Non- 104.5 Assessment & Plan POD #6- Dr. Oakley in to see patient. Patient doing well. Pain controlled. Bowels are moving. Recommend daily Colace. Discussed pain control with patient. No diet restrictions. Patient to be discharged today. Patient to follow-up with Dr. Oakley in the office next week. regular diet
[2016-06-08 09:04] VITALS: BP 120/78; PULSE 101; TEMP 36.9; O2SAT 90
[2016-06-08] MEDS: DOCUSATE SODIUM 100 MG CAP PO SCH (09:12)
[2016-06-08] MEDS: CeleBREX 100 MG CAP PO SCH (09:12)
[2016-06-08] MEDS: ENOXAPARIN 40 MG/0.4 ML SYR SQ SCH (09:13)
[2016-06-08 11:15] VITALS: BP 120/78; PULSE 101; TEMP 36.9; O2SAT 90
--- NOTE | 2016-06-08 13:52 | DISCHARGE SUMMARY ---
PRIMARY DISCHARGE DIAGNOSIS: Cholelithiasis with chronic cholecystitis. PROCEDURE PERFORMED: Laparoscopic converted to open cholecystectomy with intraoperative cholangiogram. CONSULTATIONS: None. HOSPITAL COURSE: The patient is a 60-year-old female with cholelithiasis and LFT elevations, now admitted through same day and taken to the operating room for laparoscopic cholecystectomy. The gallbladder was quite thickened and there were not tissue planes for dissection of the cystic duct or cystic artery. The procedure was converted to open with assistance of a cholangiogram was able to identify the biliary anatomy. The procedure was well tolerated and she was transferred to the surgical floor. She was able to tolerate an advancing diet over the first 2 days. She was more fatigued on postoperative day #2; however. Her pain control was marginal once [employer] P[employer] was discontinued. We tried combinations of Vicodin, Celebrex, Ultram and Toradol to manage her pain. She was not moving her bowels for the first several days and she was started on a bowel regimen for that. She was feeling better after she began moving her bowels on postoperative day #5. IV Ofirmev was also added. By day #6, she had had multiple bowel movements. Her appetite was improved. Her pain was managed with the IV acetaminophen. We were able to transition her over to a combination of Ultram and Celebrex. At that time, she was stable for discharge on day #6. Her incision was clean, dry and healing well. DISCHARGE INSTRUCTIONS: Discharge home. Follow up in the office next week with Dr. Oakley as planned. DISCHARGE MEDICATIONS: Celebrex 100 mg p.o. b.i.d., Ultram 50 mg p.o. q. 4 hours during the day; [place] 5/325 mg 1 to 2 tablets, she may take for severe pain or at night; Colace 100 mg p.o. b.i.d. x2 weeks. MTDD
== END 2016-06-08 13:57 | disposition home or self-care (01) | DRG 416 ==
LOC: ENRESERVTM → ENRESERV → ENRESERVDT → C.ACU 06:24 → C.MSN 06:40
PROVIDERS: ADMIT Surgery; ATTEND Surgery
PROC: 0FT40ZZ Resection of Gallbladder, Open Approach (ICD-10-PCS; principal; 2016-06-02 08:20)
PROC: 0FJ44ZZ Inspection of Gallbladder, Percutaneous Endoscopic Approach (ICD-10-PCS; principal; 2016-06-02 08:20)
PROC: BF121ZZ Fluoroscopy of Gallbladder using Low Osmolar Contrast (ICD-10-PCS; principal; 2016-06-02 08:20)
DX: K80.11 Calculus of gallbladder with chronic cholecystitis with obstruction (principal)

== ENCOUNTER → 2016-07-20 | Outpatient (CLI) | payer BC ==
[~2016-07-20] MED LIST changes: -CEFAZOLIN 2000 MG/60 ML D5W IV SCH; +CLB100 PO; -HEPARIN SOD 5000 UNIT/0.5 ML CARP SQ SCH; +HYDR-5688 PO; -LACTATED RINGER'S 1000ML 1,000 ML IV SCH
[2016-07-20 12:45] LABS: CHOLESTEROL/HDL RATIO 3.3; THYROID STIMULATING HORMONE 9.37 uIu/ml (0.300-4.500)
== END | disposition home or self-care (01) ==
LOC: C.LABBFT 08:57
PROVIDERS: ATTEND Physician Assistant Medical
DX: Z13.6 Encounter for screening for cardiovascular disorders (principal)

== ENCOUNTER → 2016-08-15 | Outpatient (CLI) | payer BC | END | disposition home or self-care (01) | LOC: C.LABBFT 10:18 | PROVIDERS: ATTEND Physician Assistant Medical | DX: E03.9 Hypothyroidism, unspecified (principal) ==

== ENCOUNTER → 2016-12-09 | Outpatient (CLI) | payer BC ==
[~2016-12-09] MED LIST changes: -HYDR-5688 PO
--- NOTE | 2016-12-09 15:52 | MAMMOGRAPHY REPORT ---
BILATERAL FIRST EVER DIGITAL SCREENING MAMMOGRAM TOMOSYNTHESIS WITH CAD: 12/09/2016 CLINICAL HISTORY: Routine screening. Patient has no complaints. TECHNIQUE: Breast tomosynthesis in addition to standard 2D mammography was performed. Current study was also evaluated with a Computer Aided Detection (CAD) system. COMPARISON: No prior exams were available for comparison. BREAST COMPOSITION: There are scattered areas of fibroglandular density in both breasts. FINDINGS: No suspicious masses, calcifications, or areas of architectural distortion are noted in ei ther breast. IMPRESSION: ACR BI-RADS CATEGORY 1: NEGATIVE There is no mammographic evidence of malignancy. A 1 year screening mammogram is recommended. The pa tient will receive written notification of the results. Approximately 10% of breast cancers are not detected with mammography. A negative mammographic report should not delay biopsy if a clinically suggestive mass is present. Jennifer Marquis M.D. /:12/09/2016 13:57:34 [employer] Curator: [facility], [facility] letter sent: Normal 1/2 BI-RADS Code: ACR BI-RADS Category 1: Negative
== END | disposition home or self-care (01) ==
LOC: C.MAMM 10:52
PROVIDERS: ATTEND Physician Assistant Medical
DX: Z12.31 Encounter for screening mammogram for malignant neoplasm of breast (principal)

== ENCOUNTER → 2016-12-26 | Outpatient (CLI) | payer BC ==
--- NOTE | 2016-12-26 10:24 | DIAGNOSTIC IMAGING REPORT ---
PELVIS BILATERAL HIP 2 HISTORY: 61 years-old Female BILATERAL HIP PAIN chronic bilateral hip pain COMPARISON: CT 02/26/2016 TECHNIQUE: AP view of the pelvis with frog-leg views of the bilateral hips FINDINGS: Pelvic ring appears intact without acute fracture or dislocation. Bones are mildly demineralized. Severe joint space narrowing with subchondral sclerosis and marginal osteophytosis involves the bilateral femoral acetabular joints. Chronic remodeling changes involve both the femoral head, neck and acetabulum bilaterally. There is widening of the femoral necks bilaterally. IMPRESSION: 1. No acute fracture or dislocation. 2. 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 Differential considerations would include remote avascular necrosis with articular collapse or alternatively remote history of child-gomez Kolt-Aigow-Scltsf disease with remodeling changes among other etiologies. The above report was generated using voice recognition software. It may contain grammatical, syntax or spelling errors. Electronically signed by: Ludwig Espitia M.D. 12/26/2016 10:23 AM Dictated Date/Time: 12/26/2016 10:17 AM
== END | disposition home or self-care (01) ==
LOC: C.RDSM 14:51
PROVIDERS: ATTEND Physician Assistant
DX: M25.551 Pain in right hip (principal); M25.552 Pain in left hip; M25.851 Other specified joint disorders, right hip; M25.852 Other specified joint disorders, left hip

== ENCOUNTER → 2017-01-02 | Outpatient (CLI) | payer BC | END | disposition home or self-care (01) | LOC: C.LABBFT 14:15 | PROVIDERS: ATTEND Physician Assistant Medical | DX: E03.9 Hypothyroidism, unspecified (principal) ==

== ENCOUNTER 2017-09-22 11:54 | Emergency (ER) | payer BC ==
[~2017-09-22] VITALS: Ht 158.8 cm; Wt 107.0 kg
[2017-09-22 11:55] VITALS: TEMP 36.7; Ht 158.8 cm; Wt 107.0 kg
[2017-09-22] MEDS ORDERED: KETOROLAC TROMETHAMINE 60 MG/2 ML VIAL IM STA (12:09)
[2017-09-22] MEDS ORDERED: OXYCODONE HCL IR 5 MG TAB (IMMEDIATE RELEASE) PO STA (12:09)
[2017-09-22] MEDS ORDERED: LEVO25TA5 PO (12:26)
--- NOTE | 2017-09-22 12:43 | DIAGNOSTIC IMAGING REPORT ---
LEFT KNEE 2 VIEWS HISTORY: Left knee pain. eval for fx COMPARISON: None. FINDINGS: There is no fracture or dislocation. No significant knee effusion. No soft tissue swelling. Mild cartilage space narrowing within the lateral compartment with osteophytes. There is also moderate to severe cartilage space narrowing and osteophytes at the patellofemoral joint. This is consistent with osteoarthritis. No radiopaque foreign bodies. IMPRESSION: 1. No fracture or dislocation within the left knee. 2. Degenerative changes as described above. Electronically signed by: Rakesh Marrero M.D. 09/22/2017 12:41 PM Dictated Date/Time: 09/22/2017 12:40 PM
[2017-09-22] MEDS ORDERED: OXYC-90 PO (13:27)
[2017-09-22 13:43] VITALS: BP 129/67; PULSE 65; O2SAT 97
--- NOTE | 2017-09-22 15:47 | EMERGENCY ROOM VISIT NOTE ---
History Report prepared by Kenia: Eric Newton Under the Supervision of: Dr. Gerson Wagner M.D. First contact with patient: 11:59 Chief Complaint: KNEEPAIN Stated Complaint: LEFT KNEE IMMOBILE History of Present Illness The patient is a 61 year old female who presents to the Emergency Room with complaints of worsening left knee pain beginning this week. She states that she was using a resistance band 4 days ago, involving twisting her body with her legs planted. She denies hearing any popping at this time, and states that a year ago she had been using resistance bands regularly with no issues. She notes that since then, the pain has progressed to the point where it is "practically impossible" to move it. She reports that this morning it was very difficult for her to reach the bathroom. She states she is unable to put weight on it. She denies fevers, vomiting, or numbness or weakness in the toes. She notes that she tried taking ibuprofen for the pain with no improvement. She states that she has not called [facility]. She reports that she uses a cane and walker. She states that she has problems with her hip and has plans with [facility] for a hip replacement. She was told that she had to lose 40 pounds before they can operate. She has so far lost 30. Source of History: patient Onset: 4 days ago Position: knee (left) Symptom Intensity: severe Timing: worsening Modifying Factors (Worsening): movement Associated Symptoms: No fevers, No vomiting, No numbness (in toes) Review of Systems See HPI for pertinent positives & negatives. A total of 10 systems reviewed and were otherwise negative. Past Medical & Surgical Medical Problems: (1) Cholelithiasis (2) Elevated liver enzymes (3) Tibia fracture Surgical Problems: (1) History of hip surgery Family History FH: cancer FH: heart disease Social History Smoking Status: Never Smoker Alcohol Use: none Drug Use: none Marital Status: Housing Status: lives alone Occupation Status: unemployed Current/Historical Medications Scheduled Levothyroxine Sodium (Levothyroxine Sodium), 25 MCG PO DAILY Scheduled PRN Oxycodone Ir (Roxicodone Ir), 5 MG PO Q4H PRN for Pain Allergies Coded Allergies: Dust (Verified Allergy, Unknown, hayfever, 06/02/16) Molds and Smuts (Verified Allergy, Unknown, hayfever, 06/02/16) NO KNOWN DRUG ALLERGIES (Verified Allergy, Unknown, nkda, 09/22/17) [place] Tree (Verified Allergy, Unknown, generalized "tree", hayfever, 06/02/16 ) Green Tea [place] Ext (Verified Adverse Reaction, Unknown, TOLD TO AVOID GREEN TEA, 06/02/16) Physical Exam Vital Signs Date Time Temp Pulse Resp B/P (MAP) Pulse Ox O2 Delivery O2 Flow Rate FiO2 09/22/17 13:43 65 20 129/67 97 09/22/17 11:55 36.7 118 17 153/86 98 Room Air Physical Exam Constitutional: Vital signs reviewed. Eyes: Pupils are equal round reactive to light. Conjunctiva are noninjected. ENT: Pharynx is clear without erythema or exudate. Mucous membranes are moist. Neck supple without meningeal signs. Respiratory: Clear to auscultation bilaterally. Breath sounds are equal bilaterally. Cardiovascular: Regular rate and rhythm. No rubs or gallops. GI: Soft, nondistended and nontender. Bowel sounds are present. Musculoskeletal: No peripheral edema. Mild diffuse joint line tenderness of the left knee. No increased warmth, erythema, or localized swelling. No joint laxity. Normal distal pulse. Integumentary: No cyanosis. Neurological: The patient is awake and alert. No focal deficits. Psychiatric: Normal affect. Medical Decision & Procedures ER Provider Diagnostic Interpretation: Radiology results as stated below per my review and the radiologist's interpretation: LEFT KNEE 2 VIEWS HISTORY: Left knee pain. eval for fx COMPARISON: None. FINDINGS: There is no fracture or dislocation. No significant knee effusion. No soft tissue swelling. Mild cartilage space narrowing within the lateral compartment with osteophytes. There is also moderate to severe cartilage space narrowing and osteophytes at the patellofemoral joint. This is consistent with osteoarthritis. No radiopaque foreign bodies. IMPRESSION: 1. No fracture or dislocation within the left knee. 2. Degenerative changes as described above. Electronically signed by: Rakesh Marrero M.D. 09/22/2017 12:41 PM Dictated Date/Time: 09/22/2017 12:40 PM Medications Administered Medications (Trade) Dose Ordered Sig/Pia Route Start Time Stop Time Status Last Admin Dose Admin Ketorolac Tromethamine (Toradol Inj) 10 mg NOW STAT IM 09/22/17 12:09 09/22/17 12:11 DC 09/22/17 12:16 10 MG Oxycodone HCl (Roxicodone Immediate Rel Tab) 5 mg NOW STAT PO 09/22/17 12:09 09/22/17 12:11 DC 09/22/17 12:16 5 MG ED Course 1203: The patient was evaluated in room A11B. A complete history and physical exam was performed. 1209: Ordered Oxycodone HCl 5 mg PO, Toradol 10 mg IM. 1322: I updated with the patient, who is feeling better. I discussed her X-ray results. I instructed her to follow up with Dr. Lee. She verbalized agreement of the treatment plan. She was discharged home. Medical Decision This is a 61-year-old female presents with knee pain. Differential diagnosis includes internal derangement, osteoarthritis, strain, bursitis, osteophyte. I did perform a limited focused review of portions of the patient's old chart on the electronic medical record. The patient has had no recent pertinent visits to this hospital. I did evaluate the patient as noted above. Patient is presenting with left knee pain without any significant injury. I did treat the patient with oxycodone. She was also given Toradol 10 mg IM. I did order and personally review the patient's knee x-ray as described above. She has severe osteoarthritis. I did reassess the patient. I did discuss the x-ray results with her. She does have a walker at home that she can use to get around. She was advised to follow-up with [facility] for further evaluation and care. She will continue taking ibuprofen for pain. She was given a very short prescription for oxycodone for any breakthrough pain and given precautions regarding this medication. She was discharged in good condition. [place] Drug Monitoring Program Search Results: no issues identified Medication Reconcilliation Current Medication List: was personally reviewed by me Blood Pressure Screening Patient's blood pressure: Elevated blood pressure Blood pressure disposition: Referred to PCP Impression Primary Impression: Osteoarthritis of left knee Scribe Attestation The scribe's documentation has been prepared under my direct and personally reviewed by me in its entirety. I confirm that the note above accurately reflects all work, treatment, procedures, and medical decision making performed by me. Departure Information Dispostion Home / Self-Care Prescriptions Oxycodone Ir (Roxicodone Ir) 5 Mg Tab 5 MG PO Q4H Y for Pain, #14 TAB Prov: Jelani Dobbins M.D. 09/22/17 Referrals Miles Lara M.D. (PCP) Forms HOME CARE DOCUMENTATION FORM, IMPORTANT VISIT INFORMATION Patient Instructions [facility] Additional Instructions You have been examined and treated today on an emergency basis only. This is not a substitute for, or an effort to provide, complete comprehensive medical care. It is impossible to recognize and treat all injuries or illnesses in a single emergency department visit. It is therefore important that you follow up closely with your orthopedic physician. Call as soon as possible for an appointment. Return for worsening symptoms or if you develop fever, swelling to your leg, redness or increased warmth to your knee or any other concerning symptoms. Problem Qualifiers Primary Impression: Osteoarthritis of left knee Osteoarthritis type: unspecified Qualified Codes: M17.12 - Unilateral primary osteoarthritis, left knee
== END 2017-09-22 13:43 | disposition home or self-care (01) ==
LOC: C.EDB 11:55 → C.EDA 13:43
DX: M17.12 Unilateral primary osteoarthritis, left knee (principal); R03.0 Elevated blood-pressure reading, without diagnosis of hypertension; Z91.048 Other nonmedicinal substance allergy status; Z91.018 Allergy to other foods

== ENCOUNTER → 2017-09-25 | Outpatient (CLI) | payer BC ==
[~2017-09-25] MED LIST changes: -CLB100 PO; +LEVO25TA5 PO; +OXYC-90 PO
--- NOTE | 2017-09-25 10:49 | DIAGNOSTIC IMAGING REPORT ---
LEFT KNEE RADIOGRAPHS WITH COMPARISON STANDING AP RADIOGRAPH OF THE RIGHT KNEE CLINICAL HISTORY: Medial left knee pain. COMPARISON: Left knee radiograph September 22, 2017. FINDINGS: Evaluation of the right knee is compromised due to positioning. Note is made of mild lateral patellar tilt. There is mild patellofemoral compartment joint space narrowing with osteophytosis. Moderate osteophytosis within the lateral compartment of the left knee is noted. No fracture or suspicious lesion is noted. IMPRESSION: 1. Moderate osteoarthritis of the patellofemoral and lateral compartments of the left knee. 2. No acute fracture. Electronically signed by: Efrain Lara M.D. 09/25/2017 10:48 AM Dictated Date/Time: 09/25/2017 10:33 AM
== END | disposition home or self-care (01) ==
LOC: C.RDSM 13:02
PROVIDERS: ATTEND Physician Assistant
DX: M25.562 Pain in left knee (principal)